=== PATIENT | female | born 1950 | race Caucasian/White ===

== ENCOUNTER → 2016-12-22 | Outpatient (CLI) | payer MEDICAID ==
--- NOTE | 2016-12-23 07:59 | US ---
EXAMINATION TYPE: US thyroid st tissue head/neck DATE OF EXAM: 12/22/2016 3:41 PM COMPARISON: US on PACS dated 18 June 2016 CLINICAL HISTORY: Goiter E04.2. GLAND SIZE: Right Lobe: 4.7 x2.3 x 2.0cm Overall Parenchyma: heterogenous Left Lobe: 4.8 x 2.1 x 2.1cm Overall Parenchyma: heterogeneous Isthmus Thickness: 0.4 cm NODULES RIGHT: # of nodules measured on right: 1. 0.6 X 0.7 x 0.3 cm hypoechoic mixed nodule at the mid pole with well-defined margins. This nodu le is wider than tall and shows no intranodular vascularity. Stable compared to prior 2. 1.2 X 1.1 x 0.8 cm hypoechoic mixed nodule at the lower pole with well-defined margins. This nod ule is wider than tall and shows no intranodular vascularity. Prior size: 1.4 x 0.9 x 0.9 cm, slightly diminished in size 3. 0.5 X 0.5 x 0.4 cm hypoechoic cystic nodule at the mid medial pole with well-defined margins. Th is nodule is wider than tall and shows no intranodular vascularity. stable. LEFT: # of nodules measured on left: 3 1. 1.8 X 1.5 x 1.1 cm hypoechoic mixed nodule at the lower pole with irregular margins. This nodul e is taller than wide and shows intranodular vascularity. Stable in appearance. The lesion was measured differently on prior exam. 2. 0.6 X 1.1 x 0.5 cm hypoechoic mixed nodule at the mid pole with well-defined margins. This nodul e is wider than tall and shows no intranodular vascularity. Stable in size, measured differently on prior exam 3. 0.4 X 0.6 x 0.3 cm hypoechoic mixed nodule at the mid upper medial pole with well-defined margins . This nodule is wider than tall and shows no intranodular vascularity. Prior size: 0.6 x 0.5 x 0.4 cm ISTHMUS: # of nodules measured in the isthmus: 0 TECHNOLOGIST IMPRESSION: Bilateral neck scanned, no abnormal lymphadenopathy noted. IMPRESSION: Exam is stable compared to prior
== END ==
LOC: RADUSWWP 14:49
PROVIDERS: ATTEND Family Medicine
DX: E04.2 Nontoxic multinodular goiter (principal)
CPT/HCPCS: 76536

== ENCOUNTER → 2017-06-17 | Outpatient (CLI) | payer MEDICAID ==
--- NOTE | 2017-06-25 14:01 | US ---
EXAMINATION TYPE: US thyroid st tissue head/neck DATE OF EXAM: 06/17/2017 COMPARISON: US CLINICAL HISTORY: E04.1 thyroid Nodule. Follow up US and patient not on thyroid medication GLAND SIZE: Right Lobe: 4.8 x 2.2 x 2.4 cm Overall Parenchyma: heterogenous Left Lobe: 5.5 x 2.2 x 2.4 cm Overall Parenchyma: heterogeneous Isthmus Thickness: 0.4 cm NODULES RIGHT: # of nodules measured on right: 3 largest of multiple 1. 1.9 X 1.3 x 1.1 cm hypoechoic mixed nodule at the lower pole with well-defined margins. This nod ule is wider than tall and shows no intranodular vascularity. Prior size: essentially stable(formerly labeled #2) 2. 0.8 X 0.6 x 0.5 cm hypoechoic mixed nodule at the mid pole with well-defined margins. This nodul e is wider than tall and shows no intranodular vascularity. Prior size: 0.6 x 0.7 x 0.3 cm (formerly labeled #1) 3. 0.5 X 0.5 x 0.4 cm hypoechoic cystic nodule at the mid medial pole with well-defined margins. Th is nodule is wider than tall and shows no intranodular vascularity. Prior size: 0.5 x 0.5 x 0.4 cm LEFT: # of nodules measured on left: 3 largest of multiple 1. 1.5 X 1.5 x 1.2 cm hypoechoic mixed nodule at the lower pole with irregular margins. This nodul e is wider than tall and shows intranodular vascularity. Prior size: 1.8 x 1.5 x 1.1 cm 2. 0.6 X 0.9 x 0.5 cm hypoechoic mixed nodule at the mid pole with well-defined margins. This nodule is wider than tall and shows intranodular vascularity. Prior size: 0.6 x 1.1 x 0.5 cm 3. 0.5 X 0.5 x 0.4 cm hypoechoic mixed nodule at the mid upper pole with well-defined margins. This nodule is wider than tall and shows no intranodular vascularity. Prior size: 0.4 x 0.6 x 0.3 cm ISTHMUS: # of nodules measured in the isthmus: 0 Bilateral neck scanned, no evidence of lymphadenopathy. IMPRESSION: Multiple thyroid nodules as described. Exam is felt to be stable.
== END | disposition home or self-care (01) ==
LOC: RADUSWWP 08:49
PROVIDERS: ATTEND Family Medicine
DX: E04.2 Nontoxic multinodular goiter (principal)
CPT/HCPCS: 76536

== ENCOUNTER 2017-06-25 08:58 | Day surgery (SDC) | payer MEDICAID ==
[2017-06-24 10:59] VITALS: BMI 22.4
[~2017-06-25 08:58] MED LIST: LACTATED RINGERS 1,000 ML IV SCH; LIDOCAINE 1% 20 ML VIAL (10MG/ML) FOR IV START INTRADERMA PRN
[2017-06-25 09:44] VITALS: RESP 16; TEMP 97.7
[2017-06-25] MEDS ORDERED: PROPOFOL 10 MG/ML 20 ML VIAL IV ONE (10:18)
[2017-06-25] MEDS ORDERED: LIDOCAINE 1% INJ 10MG/ML (20 ML MDV) ONE (10:18)
--- NOTE | 2017-06-25 10:43 | P.PCN ---
Date of Procedure: 06/25/17 Procedure(s) Performed: BRIEF HISTORY: Patient is a [id number] pleasant white female, scheduled for an elective colonoscopy as a part of screening for colorectal neoplasia. PROCEDURE PERFORMED: Colonoscopy and biopsy. PREOPERATIVE DIAGNOSIS: Screening for colon cancer. IV sedation per Anesthesia. PROCEDURE: After informed consent was obtained, the patient, was brought into the endoscopy unit. IV sedation was administered by Anesthesia under continuous monitoring. Digital rectal examination was normal. Initially the Olympus CF- 160 flexible video colonoscope was then inserted in the rectum, gradually advanced into the cecum without any difficulty. Careful examination was performed as the scope was gradually being withdrawn. Ileocecal valve and the appendiceal orifice were visualized and appeared normal. Prep was excellent. Mucosa of the cecum, ascending colon, transverse colon, descending colon, sigmoid colon, and rectum appeared normal. In the proximal rectum there was a 5 mm polyp that was removed by biopsy. Retroflexion was performed in the rectum and no lesions were seen. The patient tolerated the procedure well. IMPRESSION: 5 mm proximal rectal polyp status post biopsy Rest of the colon appeared normal RECOMMENDATIONS: Findings of this examination were discussed with the patient as her family. She was advised to follow with the biopsy results. If the biopsy shows a tubular adenoma she can have a repeat colonoscopy in 5 years.
[2017-06-25 11:13] VITALS: BP 113/83; PULSE 62
== END 2017-06-25 11:31 | disposition home or self-care (01) ==
LOC: ORWHC2ENDO 08:58
PROVIDERS: ATTEND Internal Medicine Gastroenterology
DX: Z12.11 Encounter for screening for malignant neoplasm of colon (principal); K62.1 Rectal polyp; Z79.899 Other long term (current) drug therapy; Z88.6 Allergy status to analgesic agent; Z88.5 Allergy status to narcotic agent; Z88.2 Allergy status to sulfonamides
CPT/HCPCS: 88305; 45380; J2001; J2704

== ENCOUNTER → 2017-06-28 | Outpatient (CLI) | payer MEDICAID ==
[2017-06-28 09:39] LABS: CH 29.2; CHCM 32.6; HCT 42.5 % (34.0-46.0); HDW 2.28; MCH 29.7 pg (25.0-35.0); MCHC 33.1 g/dL (31.0-37.0); MCV 89.8 fL (80.0-100.0); Mean Platelet Volume 6.7; RBC 4.73 m/uL (3.80-5.40); WBC 6.3 k/uL (3.8-10.6)
[2017-06-28 09:57] LABS: ALT 27 U/L (9-52); AST 21 U/L (14-36); Alkaline Phosphatase 85 U/L (38-126); Anion Gap 9 mmol/L; Appearance,Urine Clear (Clear); Bilirubin,Urine Negative (Negative); Blood Urea Nitrogen 15 mg/dL (7-17); Calcium 9.8 mg/dL (8.4-10.2); Carbon Dioxide 26 mmol/L (22-30); Chloride 107 mmol/L (98-107); Cholesterol 241 mg/dL (<200); Glucose 99 mg/dL (74-99); Glucose,Urine (UA) Negative (Negative); Ketones,Urine Negative (Negative); Leukocyte Esterase,Urine Negative (Negative); Nitrite,Urine Negative (Negative); Non-African American GFR(MDRD) >60 (>60 ml/min/1.73 sqM); Potassium 4.7 mmol/L (3.5-5.1); Protein,Urine Negative (Negative); Sodium 142 mmol/L (137-145); Specific Gravity,Urine 1.013 (1.001-1.035); Total Bilirubin 0.5 mg/dL (0.2-1.3); UA Billing (MACRO vs. MICRO) CHEM; Urobilinogen,Urine <2.0 mg/dL (<2.0)
[2017-06-28 10:33] LABS: Hepatitis C Virus IgG Ab Negative (Negative); Hepatitis C Virus IgG Index 0.02
[2017-06-28 10:45] LABS: HDL Cholesterol 123 mg/dL (40-60)
[2017-06-28 11:27] LABS: Hemoglobin A1C 5.5 % (4.2-6.1)
== END | disposition home or self-care (01) ==
LOC: LABWHC1 08:39
PROVIDERS: ATTEND Family Medicine
DX: Z00.00 Encounter for general adult medical examination without abnormal findings (principal); E04.2 Nontoxic multinodular goiter
CPT/HCPCS: 36415; 80053; 80061; 81003; 82306; 83036; 84439; 84443; 85027; 86803

== ENCOUNTER → 2017-11-03 | Outpatient (CLI) | payer MEDICAID ==
--- NOTE | 2017-11-03 16:24 | BD ---
EXAMINATION TYPE: MG DEXA axial skeleton. DATE OF EXAM: 11/03/2017 COMPARISON: 08/05/2015 CLINICAL HISTORY: 66-year-old female bone disorder, postmenopausal screening Height: 4 FT 11 1/2 IN Weight: 118 FRAX RISK QUESTIONS: Alcohol (3 or more units per day): NO Family History (Parent hip fracture): NO Glucocorticoids (More than 3mos): NO (Ex: prednisone, prednisolone, methylprednisolone, dexamethasone, and hydrocortisone). History of Fracture in Adulthood: NO Secondary Osteoporosis: 1. Type 1 Diabetes: NO 2. Hyperthyroidism: NO 3. Menopause before 45: NO 4. Malnutrition: NO 5. Chronic liver disease: NO Rheumatoid Arthritis: NO Current Tobacco Use: NO RISK FACTORS HISTORY OF: Surgery to Spine/Hip(right/left)/Wrist (right/left): LT WRIST REPLACED BASAL JOINT When: 7 YEARS AGO Family History of Osteoporosis: YES Active: YES Postmenopausal woman: AGE 56 MEDICATIONS: Additional Medications: NORVASC, CALCIUM, VIT D, LUNESTA, NATHANAEL Additional History: EXAM MEASUREMENTS: Bone mineral densitometry was performed using the [employer] System. Bone mineral density as measured about the Lumbar spine is: ----- L1-L4(G/cm2): 1.152 T Score Values are as follows: ----- L2: -0.5 ----- L3: -0.4 ----- L4: -0.2 ----- L1-L4: -0.2 Bone mineral density has: DECREASED -2.5 % since study of: 2014 Bone mineral density about the R hip (g/cm2): 0.871 Bone mineral density about the L hip (g/cm2): 0.871 T Score values are as follows: -----R Neck: -1.2 -----L Neck: -1.2 -----R Total: -0.9 -----L Total: -0.9 Bone mineral density has: DECREASED -4.4 % since study of: 2014 IMPRESSION: Osteopenia (T Score between -2.5 and -1 as noted by T score values There is slightly increased risk of fracture and the patient may be considered for treatment. Re-Screen 2-5 years. NOTE: T-SCORE=SD OF THE YOUNG ADULT MEAN.
--- NOTE | 2017-11-04 13:22 | MM ---
Reason for exam: screening (asymptomatic). Last mammogram was performed 1 year and 1 month ago. History: Patient is postmenopausal. Took hormonal contraceptives for 18 years beginning at age 20. Physical Findings: A clinical breast exam by your physician is recommended on an annual basis and results should be correlated with mammographic findings. MG 3D Screening Mammo W/Cad Bilateral CC and MLO view(s) were taken. Prior study comparison: September 24, 2016, bilateral MG 3d screening mammo w/cad. July 30, 2015, bilateral MG 3d screening mammo w/cad. The breast tissue is heterogeneously dense. This may lower the sensitivity of mammography. There is chronic nodularity in the right breast. No significant changes when compared with prior studies. ASSESSMENT: Negative, BI-RAD 1 RECOMMENDATION: Routine screening mammogram of both breasts in 1 year.
== END | disposition home or self-care (01) ==
LOC: RADMAMWWP 07:38
PROVIDERS: ATTEND Obstetrics & Gynecology
DX: Z12.31 Encounter for screening mammogram for malignant neoplasm of breast (principal); M85.80 Other specified disorders of bone density and structure, unspecified site
CPT/HCPCS: 77063; 77067; 77080

== ENCOUNTER → 2018-01-04 | Outpatient (CLI) | payer MEDICAID ==
[2018-01-04 08:19] LABS: ALT 20 U/L (9-52); AST 19 U/L (14-36); Albumin 4.4 g/dL (3.5-5.0); Alkaline Phosphatase 78 U/L (38-126); Anion Gap 12 mmol/L; Blood Urea Nitrogen 19 mg/dL (7-17); Calcium 9.7 mg/dL (8.4-10.2); Carbon Dioxide 27 mmol/L (22-30); Chloride 102 mmol/L (98-107); Glucose 95 mg/dL (74-99); Magnesium 2.1 mg/dL (1.6-2.3); Potassium 4.5 mmol/L (3.5-5.1); Sodium 141 mmol/L (137-145); Total Bilirubin 0.5 mg/dL (0.2-1.3); Total Protein 7.1 g/dL (6.3-8.2)
== END | disposition home or self-care (01) ==
LOC: LABWHC1 07:35
PROVIDERS: ATTEND Internal Medicine Interventional Cardiology
DX: I49.3 Ventricular premature depolarization (principal); R00.2 Palpitations
CPT/HCPCS: 36415; 80053; 83735

== ENCOUNTER → 2018-07-27 | Outpatient (CLI) | payer MEDICARE | END | disposition home or self-care (01) | LOC: LABWHC1 08:53 | PROVIDERS: ATTEND Internal Medicine Endocrinology, Diabetes & Metabolism | DX: Z00.01 Encounter for general adult medical examination with abnormal findings (principal); E04.2 Nontoxic multinodular goiter | CPT/HCPCS: 36415; 80061; 84443 ==

== ENCOUNTER → 2018-08-08 | Outpatient (CLI) | payer MEDICARE ==
--- NOTE | 2018-08-09 13:01 | US ---
EXAMINATION TYPE: US thyroid st tissue head/neck DATE OF EXAM: 08/08/2018 COMPARISON: NONE CLINICAL HISTORY: E04.2 GOITER. GLAND SIZE: Right Lobe: 4.9 x 2.7 x 2.0 cm Overall Parenchyma: heterogenous Left Lobe: 4.9 x 2.3 x 2.0 cm Overall Parenchyma: heterogeneous Isthmus Thickness: 0.3 cm NODULES RIGHT: # of nodules measured on right: 3 1. 1.6 X 1.3 x 1.1 cm hypoechoic mixed nodule at the lower pole with well-defined margins. This no dule is wider than tall and shows no intranodular vascularity. Prior size: 1.9 x 1.3 x 1.1 cm 2. 0.8 X 0.4 x 0.5 cm hypoechoic mixed nodule at the mid pole with well-defined margins. This nodul e is wider than tall and shows no intranodular vascularity. Prior size: 0.8 x 0.6 x 0.5 cm 3. 0.5 X 0.4 x 0.5 cm hypoechoic mixed nodule at the mid/medial pole with well-defined margins. Th is nodule is wider than tall and shows no intranodular vascularity. Prior size: 0.5 x 0.5 x 0.4 cm LEFT: # of nodules measured on left: 3 1. 1.5 X 0.9 x 1.5 cm hypoechoic mixed nodule at the lower pole with irregular margins. This nodul e is wider than tall and shows intranodular vascularity. Prior size: 1.5 x 1.5 x 1.2 cm 2. 0.7 X 0.6 x 0.9 cm hypoechoic mixed nodule at the mid pole with well-defined margins. This nodul e is wider than tall and shows no intranodular vascularity. Prior size: 0.6 x 0.9 x 0.5cm 3. 0.6 X 0.4 x 0.6 cm hypoechoic mixed nodule at the mid pole with well-defined margins. This nodul e is wider than tall and shows intranodular vascularity. Prior size: 0.5 x 0.5 x 0.4 cm ISTHMUS: # of nodules measured in the isthmus: 0 Bilateral neck scanned, no evidence of lymphadenopathy. IMPRESSION: Findings are similar to prior exam. No significant interval change is evident. Multinodular goiter.
== END | disposition home or self-care (01) ==
LOC: RADUSWWP 14:40
PROVIDERS: ATTEND Internal Medicine Endocrinology, Diabetes & Metabolism
DX: E04.2 Nontoxic multinodular goiter (principal)
CPT/HCPCS: 76536

== ENCOUNTER → 2018-12-19 | Outpatient (CLI) | payer MEDICARE ==
--- NOTE | 2018-12-20 09:21 | MM ---
Reason for exam: screening (asymptomatic). Last mammogram was performed 1 year and 2 months ago. History: Patient is postmenopausal. Took hormonal contraceptives for 18 years beginning at age 20. Physical Findings: A clinical breast exam by your physician is recommended on an annual basis and results should be correlated with mammographic findings. MG 3D Screening Mammo W/Cad Bilateral CC and MLO view(s) were taken. XCCL view(s) were taken of the left breast. Prior study comparison: November 03, 2017, bilateral MG 3d screening mammo w/cad. September 24, 2016, bilateral MG 3d screening mammo w/cad. The breast tissue is heterogeneously dense. This may lower the sensitivity of mammography. There is a stable right upper outer quadrant posterior depth mass back to 2015. No suspicious abnormality. No significant changes when compared with prior studies. ASSESSMENT: Benign, BI-RAD 2 RECOMMENDATION: Routine screening mammogram of both breasts in 1 year.
== END | disposition home or self-care (01) ==
LOC: RADMAMWWP 10:48
PROVIDERS: ATTEND Obstetrics & Gynecology
DX: Z12.31 Encounter for screening mammogram for malignant neoplasm of breast (principal)
CPT/HCPCS: 77063; 77067

== ENCOUNTER 2019-02-01 12:29 | Inpatient (IN) | payer MEDICARE ==
[2019-02-01] MEDS ORDERED: ADENOSINE 3 MG/ML 2 ML VIAL IVP STA (12:45)
[2019-02-01] MEDS ORDERED: SODIUM CHLORIDE 0.9% 1,000 ML IV STA (12:50)
--- NOTE | 2019-02-01 12:56 | ED ---
General Adult HPI - General Chief complaint: Arrhythmia/Palpitations Stated complaint: Palpitations Time Seen by Provider: 02/01/19 12:35 Source: patient, RN notes reviewed Mode of arrival: wheelchair Limitations: no limitations - History of Present Illness Initial comments: Patient is a pleasant 68-year-old female presenting to the emergency Department with palpitations. Onset of symptoms was a couple of hours ago while golfing. Symptoms have continued. Patient has tried bearing down multiple times without improvement of symptoms. Patient does have a history of similar symptoms previously associated PSVT. Patient has not had an episode in over a year now. No associated chest pain. No dyspnea. Patient does feel anxious. Patient states normally she is able to get herself out of this rhythm. - Related Data Home Medications Medication Instructions Recorded Confirmed ALPRAZolam [Xanax] 0.25 mg PO TID PRN 06/24/17 02/01/19 Cholecalciferol (Vitamin D3) 2,000 unit PO DAILY 06/24/17 02/01/19 [Vitamin D3] Eszopiclone [Lunesta] 3 mg PO HS 06/24/17 02/01/19 amLODIPine [Norvasc] 2.5 mg PO DAILY 06/24/17 02/01/19 Calcium Carb-Vit D 500Mg-200Un 1 tab PO DAILY 02/01/19 02/01/19 [Oscal 500+D] Allergies Allergy/AdvReac Type Severity Reaction Status Date / Time acetaminophen [From Vicodin] Allergy Nausea & Verified 02/01/19 12:55 Vomiting codeine Allergy Nausea & Verified 02/01/19 12:55 Vomiting hydrocodone [From Vicodin] Allergy Nausea & Verified 02/01/19 12:55 Vomiting Sulfa (Sulfonamide Allergy Nausea & Verified 02/01/19 12:55 Antibiotics) Vomiting Review of Systems ROS Statement: Those systems with pertinent positive or pertinent negative responses have been documented in the HPI. ROS Other: All systems not noted in ROS Statement are negative. Constitutional: Denies: fever Eyes: Denies: eye pain ENT: Denies: ear pain Respiratory: Denies: cough, dyspnea Cardiovascular: Reports: palpitations. Denies: chest pain Endocrine: Denies: fatigue Gastrointestinal: Denies: abdominal pain Genitourinary: Denies: dysuria Musculoskeletal: Denies: back pain Skin: Denies: rash Neurological: Denies: weakness Psychiatric: Reports: anxiety Past Medical History Past Medical History: Hypertension Additional Past Medical History / Comment(s): PSVT- has had for a very long time.States takes the [facility] for this. 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 Multiple nodules on her thyroid. Hx. of HTN. History of Any Multi-Drug Resistant Organisms: None Reported Past Surgical History: Orthopedic Surgery Additional Past Surgical History / Comment(s): Prior colonoscopy for a polyp. L Oophorectomy, L thumb surgery. Past Anesthesia/Blood Transfusion Reactions: No Reported Reaction Past Psychological History: No Psychological Hx Reported Smoking Status: Former smoker Past Alcohol Use History: Occasional Past Drug Use History: None Reported - Past Family History Mother Family Medical History: No Reported History Father Family Medical History: Cancer Additional Family Medical History / Comment(s): Larnyx Brother(s) Family Medical History: Cancer Additional Family Medical History / Comment(s): Prostate General Exam Limitations: no limitations General appearance: alert, anxious Head exam: Present: atraumatic Eye exam: Present: normal appearance, PERRL ENT exam: Present: normal oropharynx Neck exam: Present: normal inspection Respiratory exam: Present: normal lung sounds bilaterally Cardiovascular Exam: Present: tachycardia Expanded Peripheral pulses: 2+: Radial (R), Radial (L), Dorsalis Pedis (R), Dorsalis Pedis (L) GI/Abdominal exam: Present: soft. Absent: tenderness Extremities exam: Present: normal inspection. Absent: pedal edema, calf tenderness Neurological exam: Present: alert Psychiatric exam: Present: normal affect, normal mood Skin exam: Present: normal color Course Vital Signs 02/01/19 02/01/19 02/01/19 12:30 12:50 13:00 Temperature 97.7 F Pulse Rate 189 H 97 91 Respiratory 22 18 18 Rate Blood Pressure 122/95 118/85 120/72 O2 Sat by Pulse 100 100 100 Oximetry - Reevaluation(s) Reevaluation #1: 02/01/19 12:55 Repeat EKG at 1248 shows sinus rhythm at 87. MS 156. QRS 66. QT 3:30. QTC 397. Normal axis. Normal QRS. Borderline lateral ST depression 02/01/19 13:14 EKG #3 showed normal sinus rhythm at 83. MS 156. QRS 80. QT 372. QTC 437. Normal axis. Normal QRS. No acute ST change. 02/01/19 14:18 playground monitor: Normal sinus rhythm with a rate of 85. Patient was placed on cardiac monitors secondary to arrhythmia and to watch for further arrhythmias. EKG Findings - EKG Comments: EKG Findings:: SVT with a rate of 177. QRS 62. QT 260. QTC 446. Normal axis. Normal QRS. Lateral ST depression. Medical Decision Making - Medical Decision Making Patient reevaluated and updated. Rhythm remains normal sinus. Patient and family updated on results and plan. Case was discussed in detail with Dr. Calderon, who will admit covering for Dr. Guerrero, who admits for Dr. Gayle. Case was also discussed with practitioner Jojo capps, who will consult with cardiology. - Lab Data Result diagrams: 02/01/19 12:46 02/01/19 12:46 Lab Results 02/01/19 02/01/19 02/01/19 Range/Units 12:46 12:46 12:46 WBC 15.9 H (3.8-10.6) k/uL RBC 5.42 H (3.80-5.40) m/uL Hgb 14.9 (11.4-16.0) gm/dL Hct 45.9 (34.0-46.0) % MCV 84.7 (80.0-100.0) fL MCH 27.5 (25.0-35.0) pg MCHC 32.5 (31.0-37.0) g/dL RDW 12.7 (11.5-15.5) % Plt Count 386 (150-450) k/uL Neutrophils % 79 % Lymphocytes % 13 % Monocytes % 4 % Eosinophils % 1 % Basophils % 1 % Neutrophils # 12.6 H (1.3-7.7) k/uL Lymphocytes # 2.1 (1.0-4.8) k/uL Monocytes # 0.7 (0-1.0) k/uL Eosinophils # 0.1 (0-0.7) k/uL Basophils # 0.1 (0-0.2) k/uL PT (9.0-12.0) sec INR (<1.2) APTT (22.0-30.0) sec Sodium 139 (137-145) mmol/L Potassium 4.5 (3.5-5.1) mmol/L Chloride 105 (98-107) mmol/L Carbon Dioxide 21 L (22-30) mmol/L Anion Gap 13 mmol/L BUN 22 H (7-17) mg/dL Creatinine 1.05 H (0.52-1.04) mg/dL Est GFR (CKD-EPI)AfAm 64 (>60 ml/min/1.73 sqM) Est GFR (CKD-EPI)NonAf 55 (>60 ml/min/1.73 sqM) Glucose 87 (74-99) mg/dL Calcium 10.5 H (8.4-10.2) mg/dL Magnesium 1.9 (1.6-2.3) mg/dL Total Bilirubin 0.7 (0.2-1.3) mg/dL AST 22 (14-36) U/L ALT 22 (9-52) U/L Alkaline Phosphatase 93 (38-126) U/L Creatine Kinase 84 (30-135) U/L CK-MB (CK-2) 1.8 (0.0-2.4) ng/mL Troponin I 0.184 H* (0.000-0.034) ng/mL Total Protein 7.5 (6.3-8.2) g/dL Albumin 4.8 (3.5-5.0) g/dL TSH 1.470 (0.465-4.680) mIU/L Free T4 1.43 (0.78-2.19) ng/dL Free T3 pg/mL 4.9 (2.8-5.3) pg/ml 02/01/19 Range/Units 12:46 WBC (3.8-10.6) k/uL RBC (3.80-5.40) m/uL Hgb (11.4-16.0) gm/dL Hct (34.0-46.0) % MCV (80.0-100.0) fL MCH (25.0-35.0) pg MCHC (31.0-37.0) g/dL RDW (11.5-15.5) % Plt Count (150-450) k/uL Neutrophils % % Lymphocytes % % Monocytes % % Eosinophils % % Basophils % % Neutrophils # (1.3-7.7) k/uL Lymphocytes # (1.0-4.8) k/uL Monocytes # (0-1.0) k/uL Eosinophils # (0-0.7) k/uL Basophils # (0-0.2) k/uL PT 9.9 (9.0-12.0) sec INR 0.9 (<1.2) APTT 22.3 (22.0-30.0) sec Sodium (137-145) mmol/L Potassium (3.5-5.1) mmol/L Chloride (98-107) mmol/L Carbon Dioxide (22-30) mmol/L Anion Gap mmol/L BUN (7-17) mg/dL Creatinine (0.52-1.04) mg/dL Est GFR (CKD-EPI)AfAm (>60 ml/min/1.73 sqM) Est GFR (CKD-EPI)NonAf (>60 ml/min/1.73 sqM) Glucose (74-99) mg/dL Calcium (8.4-10.2) mg/dL Magnesium (1.6-2.3) mg/dL Total Bilirubin (0.2-1.3) mg/dL AST (14-36) U/L ALT (9-52) U/L Alkaline Phosphatase (38-126) U/L Creatine Kinase (30-135) U/L CK-MB (CK-2) (0.0-2.4) ng/mL Troponin I (0.000-0.034) ng/mL Total Protein (6.3-8.2) g/dL Albumin (3.5-5.0) g/dL TSH (0.465-4.680) mIU/L Free T4 (0.78-2.19) ng/dL Free T3 pg/mL (2.8-5.3) pg/ml Critical Care Time Critical Care Time: Yes Total Critical Care Time: 32 Disposition Clinical Impression: Supraventricular tachycardia Disposition: ADMITTED IP TO THIS HOSP Is patient prescribed a controlled substance at d/c from ED?: No Referrals: Alen Gayle DO [Primary Care Provider] - 1-2 days Decision Time: 14:19
[2019-02-01 13:08] LABS: Basophils # (A) 0.1 k/uL (0-0.2); Basophils % (A) 1 %; Eosinophils # (A) 0.1 k/uL (0-0.7); Eosinophils % (A) 1 %; HCT 45.9 % (34.0-46.0); HGB 14.9 gm/dL (11.4-16.0); Lymphocytes # (A) 2.1 k/uL (1.0-4.8); Lymphocytes % (A) 13 %; MCH 27.5 pg (25.0-35.0); MCHC 32.5 g/dL (31.0-37.0); MCV 84.7 fL (80.0-100.0); Mean Platelet Volume 7.8; Monocytes # (A) 0.7 k/uL (0-1.0); Monocytes % (A) 4 %; Neutrophils # (A) 12.6 k/uL (1.3-7.7); Neutrophils % (A) 79 %; Platelet Count 386 k/uL (150-450); RBC 5.42 m/uL (3.80-5.40); RDW 12.7 % (11.5-15.5); WBC 15.9 k/uL (3.8-10.6)
--- NOTE | 2019-02-01 13:25 | XR ---
EXAMINATION TYPE: XR chest 2V DATE OF EXAM: 02/01/2019 COMPARISON: NONE TECHNIQUE: PA and lateral views submitted. HISTORY: Dysrhythmia FINDINGS: The lungs are clear and there is no pneumothorax, pleural effusion, or focal pneumonia. Atheroscler otic change aorta. Hyperinflation suggests COPD. IMPRESSION: 1. No acute process.
[2019-02-01 13:26] LABS: Albumin 4.8 g/dL (3.5-5.0); Calcium 10.5 mg/dL (8.4-10.2); Magnesium 1.9 mg/dL (1.6-2.3); Potassium 4.5 mmol/L (3.5-5.1); Total Bilirubin 0.7 mg/dL (0.2-1.3); Total Protein 7.5 g/dL (6.3-8.2)
[2019-02-01 13:28] LABS: INR 0.9 (<1.2); Partial Thromboplastin Time 22.3 sec (22.0-30.0); Prothrombin Time 9.9 sec (9.0-12.0)
[2019-02-01 13:42] LABS: T4, Free (Free Thyroxine) 1.43 ng/dL (0.78-2.19)
[2019-02-01 13:43] LABS: Creatine Kinase MB 1.8 ng/mL (0.0-2.4)
[2019-02-01 13:45] LABS: Troponin I 0.184 ng/mL (0.000-0.034)
[2019-02-01] MEDS ORDERED: HEPARIN SODIUM,PORCINE 5,000 UNIT/ML 1 ML VIAL IV ONE (13:52)
[2019-02-01] MEDS ORDERED: HEPARIN SODIUM,PORCINE 5,000 UNIT/ML 1 ML VIAL IV PRN (13:52)
[2019-02-01] MEDS ORDERED: ASPIRIN 81 MG PO STA (13:52)
[2019-02-01] MEDS ORDERED: HEPARIN SOD,PORK IN 0.45% NACL 25,000 UNIT in 0.45% NACL 1 250ML.BAG IV SCH (14:00)
[2019-02-01] MEDS ORDERED: NITROGLYCERIN SL TABS 0.4 MG TAB SUBLINGUAL PRN (14:19)
[2019-02-01] MEDS ORDERED: ALPRAZolam 0.25 MG TAB PO PRN (14:20)
--- NOTE | 2019-02-01 15:06 | P.CRDCN ---
History of Present Illness Consult date: 02/01/19 Requesting physician: Juanis Calderon Reason for Consult (text): SVT Chief complaint: Palpitations History of present illness: This is a pleasant 68 stroke female who follows regularly with Dr. Olvera in the office. Patient has a known history of hypertension, PSVT, and states that this is been several years since she's had an episode of supraventricular tachycardia. According to the patient, overall she's been feeling well, she was on the golf course this morning and noticed her heart racing fast, because of the pace on the course, she did not feel comfortable lying down on the ground and taking deep breaths like she normally does when she has SVT. Therefore the symptoms of heart racing persisted for some time, when she was finally able to lie down and take a deep breath and bear down he remained in a rapid rhythm. She does state that she was dizzy and lightheaded and in spite of that drove herself home. She did lie on the ground at home called her who ultimately brought her to the emergency room for further evaluation and treatment. Her EKG on arrival here showed a supraventricular tachycardia, patient was given 6 mg of adenosine and converted to normal sinus rhythm. Her subsequent EKG showed normal sinus rhythm with no acute changes. Blood pressure at present 134/80 with a heart rate in the 80s, 99% on room air. White blood cell count 15.9, hemoglobin 14.9, platelet count 386. Sodium 139, potassium 4.5, BUN 22 and creatinine 1.0. A greasy level I.9. Troponin 0.184. TSH level I.4. At the time of my examination in the emergency room, patient states she feels well, a little tired, but otherwise no complaints. Past Medical History Past Medical History: Hypertension Additional Past Medical History / Comment(s): PSVT- has had for a very long time.States takes the [facility] for this. 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 Multiple nodules on her thyroid. Hx. of HTN. History of Any Multi-Drug Resistant Organisms: None Reported Past Surgical History: Orthopedic Surgery Additional Past Surgical History / Comment(s): Prior colonoscopy for a polyp. L Oophorectomy, L thumb surgery. Past Anesthesia/Blood Transfusion Reactions: No Reported Reaction Past Psychological History: No Psychological Hx Reported Smoking Status: Former smoker Past Alcohol Use History: Occasional Past Drug Use History: None Reported - Past Family History Mother Family Medical History: No Reported History Father Family Medical History: Cancer Additional Family Medical History / Comment(s): Larnyx Brother(s) Family Medical History: Cancer Additional Family Medical History / Comment(s): Prostate Medications and Allergies Home Medications Medication Instructions Recorded Confirmed Type ALPRAZolam [Xanax] 0.25 mg PO TID PRN 06/24/17 02/01/19 History Cholecalciferol (Vitamin D3) 2,000 unit PO DAILY 06/24/17 02/01/19 History [Vitamin D3] Eszopiclone [Lunesta] 3 mg PO HS 06/24/17 02/01/19 History amLODIPine [Norvasc] 2.5 mg PO DAILY 06/24/17 02/01/19 History Calcium Carb-Vit D 500Mg-200Un 1 tab PO DAILY 02/01/19 02/01/19 History [Oscal 500+D] Allergies Allergy/AdvReac Type Severity Reaction Status Date / Time acetaminophen [From Vicodin] Allergy Nausea & Verified 02/01/19 12:55 Vomiting codeine Allergy Nausea & Verified 02/01/19 12:55 Vomiting hydrocodone [From Vicodin] Allergy Nausea & Verified 02/01/19 12:55 Vomiting Sulfa (Sulfonamide Allergy Nausea & Verified 02/01/19 12:55 Antibiotics) Vomiting Physical Exam Vitals: Vital Signs Temp Pulse Resp BP Pulse Ox 02/01/19 14:30 81 18 134/89 99 02/01/19 13:00 91 18 120/72 100 02/01/19 12:50 97 18 118/85 100 02/01/19 12:30 97.7 F 189 H 22 122/95 100 Intake and Output 02/01/19 02/01/19 02/01/19 06:59 14:59 22:59 Other: Weight 52.163 kg PHYSICAL EXAMINATION: GENERAL: 68 stroke female in no acute distress at the time of my examination HEENT: Head is atraumatic, normocephalic. Pupils equal, round. Sclera anicteric. Conjunctiva are clear. Mucous membranes of the mouth are moist. Neck is supple. There is no elevated jugular venous pressure. No carotid bruit is heard. HEART EXAMINATION: Heart S1, S2 normal. No murmur or gallop heard. CHEST EXAMINATION: Lungs are clear to auscultation and precussion. No chest wall tenderness is noted on palpation or with deep breathing. ABDOMEN: Soft, nontender. Bowel sounds are heard. No organomegaly noted. EXTREMITIES: 2+ peripheral pulses with no evidence of peripheral edema and no calf tenderness noted. NEUROLOGIC patient is awake, alert and oriented 3 . . Results 02/01/19 12:46 02/01/19 12:46 Cardiac Enzymes 02/01/19 02/01/19 Range/Units 12:46 12:46 AST 22 (14-36) U/L CK-MB (CK-2) 1.8 (0.0-2.4) ng/mL Troponin I 0.184 H* (0.000-0.034) ng/mL Coagulation 02/01/19 Range/Units 12:46 PT 9.9 (9.0-12.0) sec APTT 22.3 (22.0-30.0) sec CBC 02/01/19 Range/Units 12:46 WBC 15.9 H (3.8-10.6) k/uL RBC 5.42 H (3.80-5.40) m/uL Hgb 14.9 (11.4-16.0) gm/dL Hct 45.9 (34.0-46.0) % Plt Count 386 (150-450) k/uL Comprehensive Metabolic Panel 02/01/19 Range/Units 12:46 Sodium 139 (137-145) mmol/L Potassium 4.5 (3.5-5.1) mmol/L Chloride 105 (98-107) mmol/L Carbon Dioxide 21 L (22-30) mmol/L BUN 22 H (7-17) mg/dL Creatinine 1.05 H (0.52-1.04) mg/dL Glucose 87 (74-99) mg/dL Calcium 10.5 H (8.4-10.2) mg/dL AST 22 (14-36) U/L ALT 22 (9-52) U/L Alkaline Phosphatase 93 (38-126) U/L Total Protein 7.5 (6.3-8.2) g/dL Albumin 4.8 (3.5-5.0) g/dL Current Medications Generic Name Dose Route Start Last Admin Trade Name Freq PRN Reason Stop Dose Admin Alprazolam 0.25 mg 02/01/19 14:20 Xanax PO TID PRN Anxiety Amlodipine Besylate 2.5 mg 02/02/19 09:00 Norvasc PO DAILY LANDRY Aspirin 325 mg 02/02/19 09:00 Aspirin PO DAILY LANDRY Heparin Sodium (Porcine) 0 unit 02/01/19 13:52 Heparin IV PER PROTOCOL PRN Low PTT Protocol Sodium Chloride 1,000 mls @ 100 mls/hr 02/01/19 12:50 02/01/19 13:19 Saline 0.9% IV 02/01/19 22:49 100 mls/hr .Q10H STA Administration Heparin Sodium/Sodium Chloride 250 mls @ 6.26 mls/hr 02/01/19 14:00 02/01/19 14:25 25,000 unit/ Sodium Chloride IV 12 units/kg/hr .Q24H LANDRY 6.26 mls/hr Administration Protocol 12 UNITS/KG/HR Nitroglycerin 0.4 mg 02/01/19 14:19 Nitrostat SUBLINGUAL Q5M PRN Chest Pain Sodium Chloride 10 ml 02/01/19 21:00 Saline Flush IV BID LANDRY Temazepam 15 mg 02/01/19 21:00 Restoril PO HS LANDRY Intake and Output 02/01/19 02/01/19 02/01/19 06:59 14:59 22:59 Other: Weight 52.163 kg Patient Weight 02/02/19 06:59 Weight 52.163 kg 02/01/19 12:46 02/01/19 12:46 EKG Interpretations (text) Initial EKG showed a supraventricular tachycardia, subsequent EKG showed normal sinus rhythm with no acute changes. Assessment and Plan Plan: Assessment and plan #1 supraventricular tachycardia, currently in normal sinus rhythm post adenosine #2 history of PSVT #3 hypertension #4 abnormality in troponin, likely secondary to SVT Plan We will obtain 2 subsequent troponin, obtain echocardiogram with Doppler study. Continue to observe the patient for another 24 hours. Further recommendations to follow. DNP note has been reviewed, I agree with a documented findings and plan of care. Patient was seen and examined.
[2019-02-01] MEDS: SODIUM CHLORIDE 0.9% 1,000 ML IV SCH (18:52)
--- NOTE | 2019-02-01 20:42 | HP ---
HISTORY AND PHYSICAL CHIEF COMPLAINT: Leg pain and palpitations. HISTORY OF PRESENT ILLNESS: This 68-year-old woman with a past medical history of multiple medical problems, including hypertension, DJD, history of supraventricular tachycardia, being followed by Dr. Gayle and Dr. Olvera in the outpatient setting, apparently was playing golf today. The patient had palpitations that lasted for a couple of hours. The patient usually does some maneuvers to stop it, which relieved the symptoms, and the patient came to [facility] and was admitted for further evaluation and treatment. The patient was given adenosine, with significant relief in the symptoms. The patient had normal sinus rhythm with possibly sinus arrhythmia. Her EKG also showed some ST-T changes in the lateral leads with tachycardia. The patient was admitted for further evaluation and treatment. Cardiology evaluation has been sought. The patient has not had a recent stress test. Lab-welsh, white count is elevated at 15.9. Troponin was found to be 0.184. There is no history of any fever, rigors or chills. No history of headache, loss of consciousness, seizures. PAST MEDICAL HISTORY: 1. History of hypertension. 2. DJD. 3. History of supraventricular tachycardia. 4. History of thyroid nodules. 5. History of DJD. MEDICATIONS PRIOR TO ADMISSION: Include: 1. Norvasc 2.5 daily. 2. Lunesta 3 mg p.o. at bedtime. 3. Vitamin D3 2000 daily. 4. Os-Oneil with vitamin D one p.o. daily. 5. Xanax 0.25 t.i.d. p.r.n. ALLERGIES: 1. VICODIN. 2. CODEINE. 3. ANTIBIOTICS. FAMILY HISTORY: No history of any heart disease or strokes in the family. SOCIAL HISTORY: No history of smoking. Occasional alcohol intake. REVIEW OF SYSTEMS: ENT: No diminished hearing. No diminished vision. CARDIOVASCULAR SYSTEM: As mentioned earlier. RESPIRATORY SYSTEM: No cough, hemoptysis. GI: No nausea, vomiting, diarrhea. : No dysuria or retention. NERVOUS SYSTEM: No numbness, weakness. ALLERGY/IMMUNOLOGY: No asthma, hayfever. MUSCULOSKELETAL: As mentioned earlier. HEMATOLOGY/ONCOLOGY: No history of anemia. ENDOCRINE: No history of diabetes, hypothyroidism. CONSTITUTIONAL: As mentioned earlier. DERMATOLOGY: Negative. RHEUMATOLOGY: Negative. PSYCHIATRY: As mentioned earlier. PHYSICAL EXAMINATION: Patient alert and oriented x3. Pulse 80, blood pressure 116/78, respiration 18, temperature normal, pulse ox 98% on 2 L. HEENT: Conjunctivae normal. Oral mucosa moist. NECK: No jugular venous distention. No carotid bruit. No lymph node enlargement. CARDIOVASCULAR SYSTEM: S1, S2 muffled. No S3. No S4. RESPIRATORY SYSTEM: Breath sounds diminished at the bases. No rhonchi. No crackles. ABDOMEN: Soft, non-tender. No mass palpable. LEGS: No edema. No swelling. NERVOUS SYSTEM: Higher functions as mentioned earlier. Moves all 4 limbs. No focal motor or sensory deficit. LYMPHATICS: No lymph node palpable in neck, axillae or groin. SKIN: No ulcer, rash, bleeding. JOINTS: No active deforming arthropathy. LABS: WBC 15.9, hemoglobin 14.9. Sodium 131, potassium 4.5, creatinine 1.05. Troponin 0.184. ASSESSMENT: 1. Atrial flutter with fast ventricular rate. 2. Troponin 0.184. Rule out acute gkn-TN-eufwoaf-elevation myocardial infarction. 3. Increased creatinine. Rule out mild acute renal failure, possibly prerenal secondary to dehydration. 4. Increased white count. 5. Hypertension. 6. History of degenerative joint disease. 7. History of supraventricular tachycardia. 8. Thyroid nodules. RECOMMENDATIONS AND DISCUSSION: In this 68-year-old woman who presented with multiple medical issues, at this time I recommend to continue current medications. IV heparin has been initiated. Will continue to hydrate the patient. We will follow the patient closely with Cardiology. The patient might require further testing to rule out coronary artery disease. Overall prognosis guarded because of multiple complex medical issues as detailed above. Further recommendations to follow. Discussed with the patient and family. A copy of this dictation is being forwarded to Dr. Gayle, who is the primary physician. MMODL / IJN: [id number] /
[2019-02-01] MEDS ORDERED: TEMAZEPAM 15 MG CAP PO SCH (21:00)
[2019-02-01 21:40] LABS: Appearance,Urine Clear (Clear); Bilirubin,Urine Negative (Negative); Blood,Urine Negative (Negative); Color,Urine Light Yellow; Glucose,Urine (UA) Negative (Negative); Ketones,Urine Negative (Negative); Leukocyte Esterase,Urine Negative (Negative); Nitrite,Urine Negative (Negative); PH, Urine 6.5 (5.0-8.0); Protein,Urine Negative (Negative); Specific Gravity,Urine 1.007 (1.001-1.035); Urobilinogen,Urine <2.0 mg/dL (<2.0)
[2019-02-02 07:05] LABS: Basophils # (A) 0.1 k/uL (0-0.2); Basophils % (A) 1 %; Eosinophils # (A) 0.2 k/uL (0-0.7); Eosinophils % (A) 4 %; HGB 13.1 gm/dL (11.4-16.0); Lymphocytes # (A) 2.4 k/uL (1.0-4.8); Lymphocytes % (A) 39 %; MCH 27.6 pg (25.0-35.0); MCV 86.3 fL (80.0-100.0); Mean Platelet Volume 7.3; Monocytes # (A) 0.4 k/uL (0-1.0); Monocytes % (A) 6 %; Neutrophils # (A) 2.9 k/uL (1.3-7.7); Neutrophils % (A) 47 %; Platelet Count 274 k/uL (150-450); RBC 4.75 m/uL (3.80-5.40); RDW 13.6 % (11.5-15.5); WBC 6.2 k/uL (3.8-10.6)
[2019-02-02 08:03] LABS: Anion Gap 7 mmol/L; Blood Urea Nitrogen 14 mg/dL (7-17); Calcium 8.6 mg/dL (8.4-10.2); Carbon Dioxide 24 mmol/L (22-30); Chloride 111 mmol/L (98-107); Cholesterol 224 mg/dL (<200); Glucose 101 mg/dL (74-99); HDL Cholesterol 103 mg/dL (40-60); LDL Cholesterol,Calculated 106 mg/dL (0-99); Potassium 4.2 mmol/L (3.5-5.1); Sodium 142 mmol/L (137-145); Triglycerides 74 mg/dL (<150)
[2019-02-02] MEDS ORDERED: CHOLECALCIFEROL 1,000 UNIT TAB PO SCH (09:00)
[2019-02-02] MEDS ORDERED: amLODIPine 2.5 MG TAB PO SCH (09:00)
[2019-02-02] MEDS ORDERED: ASPIRIN 325 MG TAB PO SCH (09:00)
[2019-02-02] MEDS ORDERED: CALCIUM CARB-VIT D 500MG-200UN 1 EACH TAB PO SCH (09:00)
[2019-02-02] MEDS: SODIUM CHLORIDE 0.9% 1,000 ML IV SCH (09:34)
--- NOTE | 2019-02-02 10:08 | ECHOF ---
Referral Reason:svt, elevated trop MEASUREMENTS -------- HEIGHT: 165.1 cm WEIGHT: 52.2 kg BP: 120/72 IVSd: 0.9 cm (0.6 - 1.1) LVIDd: 3.7 cm (3.9 - 5.3) LVPWd: 0.9 cm (0.6 - 1.1) IVSs: 1.4 cm LVIDs: 2.4 cm LVPWs: 1.4 cm LA Diam: 2.9 cm (2.7 - 3.8) RVIDd: 3.1 cm (< 3.3) Ao Diam: 3.3 cm (2.0 - 3.7) AV Cusp: 2.1 cm (1.5 - 2.6) EPSS: 0.5 cm MV E Jona: 0.75 m/s MV DecT: 191 ms MV A Jona: 0.66 m/s MV E/A Ratio: 1.14 RAP: 5.00 mmHg RVSP: 20.60 mmHg MV EF SLOPE: 67.14 mm/s (70 - 150) MV EXCURSION: 14.88 mm (> 18.000) FINDINGS -------- Sinus rhythm. This was a technically excellent study. The left ventricular size is normal. Left ventricular wall thickness is normal. Overall left vent ricular systolic function is normal with, an EF between 60 - 65 %. The right ventricle is normal in size. The left atrial size is normal. The right atrium is normal in size. The aortic valve is trileaflet and appears structurally normal. There is trace to mild mitral regurgitation. Mild tricuspid regurgitation present. Right ventricular systolic pressure is normal at < 35 mmHg. Trace/mild (physiologic) pulmonic regurgitation. The aortic root size is normal. Normal inferior vena cava with normal inspiratory collapse consistent with estimated right atrial pre ssure of 5 mmHg. There is no pericardial effusion. CONCLUSIONS -------- 1. Sinus rhythm. 2. This was a technically excellent study. 3. The left ventricular size is normal. 4. Left ventricular wall thickness is normal. 5. Overall left ventricular systolic function is normal with, an EF between 60 - 65 %. 6. The right ventricle is normal in size. 7. The left atrial size is normal. 8. The right atrium is normal in size. 9. The aortic valve is trileaflet and appears structurally normal. 10. There is trace to mild mitral regurgitation. 11. Mild tricuspid regurgitation present. 12. Right ventricular systolic pressure is normal at < 35 mmHg. 13. Trace/mild (physiologic) pulmonic regurgitation. 14. The aortic root size is normal. 15. Normal inferior vena cava with normal inspiratory collapse consistent with estimated right atrial pressure of 5 mmHg. 16. There is no pericardial effusion. BODY ENGINEER: Norma Marr RDCS
[2019-02-02 10:42] VITALS: RESP 18; TEMP 98.6
[2019-02-02] MEDS ORDERED: VERAPAMIL SR 120 MG TABLET.ER PO SCH (11:15)
[2019-02-02 12:19] VITALS: BP 142/88; PULSE 71
--- NOTE | 2019-02-02 14:51 | P.PN ---
Subjective Progress Note Date: 02/02/19 This is a pleasant 68 stroke female who follows regularly with Dr. Olvera in the office. Patient has a known history of hypertension, PSVT, and states that this is been several years since she's had an episode of supraventricular tachycardia. According to the patient, overall she's been feeling well, she was on the golf course this morning and noticed her heart racing fast, because of the pace on the course, she did not feel comfortable lying down on the ground and taking deep breaths like she normally does when she has SVT. Therefore the symptoms of heart racing persisted for some time, when she was finally able to lie down and take a deep breath and bear down he remained in a rapid rhythm. She does state that she was dizzy and lightheaded and in spite of that drove herself home. She did lie on the ground at home called her who ultimately brought her to the emergency room for further evaluation and treatment. Her EKG on arrival here showed a supraventricular tachycardia, patient was given 6 mg of adenosine and converted to normal sinus rhythm. Her subsequent EKG showed normal sinus rhythm with no acute changes. Blood pressure at present 134/80 with a heart rate in the 80s, 99% on room air. White blood cell count 15.9, hemoglobin 14.9, platelet count 386. Sodium 139, potassium 4.5, BUN 22 and creatinine 1.0. A greasy level I.9. Troponin 0.184. TSH level I.4. At the time of my examination in the emergency room, patient states she feels well, a little tired, but otherwise no complaints. 02/02/2019 Patient was seen and examined this morning, feels well overall. No further episodes of SVT noted. Echo revealed normal left ventricular systolic function. Patient's abnormality in troponin was likely secondary to SVT. From cardiology's perspective, we'll discontinue Norvasc and start the patient on verapamil, we will set up a follow-up appointment for the patient to see Dr. Olvera in the upcoming week. Objective - Vital Signs Vital signs: Vital Signs Temp 98.6 F 02/02/19 08:00 Pulse 71 02/02/19 12:15 Resp 18 02/02/19 08:00 BP 142/88 02/02/19 12:15 Pulse Ox 97 02/02/19 08:00 Intake & Output 02/01/19 02/02/19 02/02/19 18:59 06:59 18:59 Intake Total 39.96 322.159 Balance 39.96 322.159 Weight 52.163 kg 53 kg Intake: Intake, IV Titration 39.96 82.159 Amount Heparin Sod,Pork in 0.45% 39.96 82.159 NaCl 25,000 unit In 0.45 % NaCl 1 250ml.bag @ 12 UNITS/KG/HR 6.26 mls/hr IV .Q24H LANDRY Rx#: [id number] Oral 240 Other: # Voids 1 - Exam PHYSICAL EXAMINATION: GENERAL: 68 stroke female in no acute distress at the time of my examination HEENT: Head is atraumatic, normocephalic. Pupils equal, round. Sclera anic teric. Conjunctiva are clear. Mucous membranes of the mouth are moist. Neck is supple. There is no elevated jugular venous pressure. No carotid bruit is heard. HEART EXAMINATION: Heart S1, S2 normal. No murmur or gallop heard. CHEST EXAMINATION: Lungs are clear to auscultation and precussion. No chest wall tenderness is noted on palpation or with deep breathing. ABDOMEN: Soft, nontender. Bowel sounds are heard. No organomegaly noted. EXTREMITIES: 2+ peripheral pulses with no evidence of peripheral edema and no calf tenderness noted. NEUROLOGIC patient is awake, alert and oriented 3 . - Labs CBC & Chem 7: 02/02/19 06:36 02/02/19 06:36 Labs: Abnormal Lab Results - Last 24 Hours (Table) 02/01/19 02/01/19 02/02/19 Range/Units 19:36 19:36 00:58 APTT 45.1 H (22.0-30.0) sec Chloride (98-107) mmol/L Glucose (74-99) mg/dL Troponin I 0.635 H* 0.501 H* (0.000-0.034) ng/mL Cholesterol (<200) mg/dL LDL Cholesterol, Calc (0-99) mg/dL HDL Cholesterol (40-60) mg/dL 02/02/19 02/02/19 Range/Units 06:36 06:36 APTT 49.3 H (22.0-30.0) sec Chloride 111 H (98-107) mmol/L Glucose 101 H (74-99) mg/dL Troponin I (0.000-0.034) ng/mL Cholesterol 224 H (<200) mg/dL LDL Cholesterol, Calc 106 H (0-99) mg/dL HDL Cholesterol 103 H (40-60) mg/dL Assessment and Plan Plan: Assessment and plan #1 supraventricular tachycardia, currently in normal sinus rhythm post adenosine #2 history of PSVT #3 hypertension #4 abnormality in troponin, likely secondary to SVT Plan We will discontinue the Norvasc and start the patient on verapamil. Patient may be able to be discharged home from cardiology's perspective. Follow-up appointment with Dr. Olvera in the next upcoming week. Outpatient stress test. DNP note has been reviewed, I agree with a documented findings and plan of care. Patient was seen and examined.
--- NOTE | 2019-02-03 07:45 | DS ---
DISCHARGE SUMMARY FINAL DIAGNOSES: 1. Atrial flutter with fast ventricular rate. 2. Troponin 0.635, possibly secondary to persistent atrial fibrillation per Cardiology. 3. Increased creatinine with possible mild acute renal failure, prerenal, improved. 4. WBC, improved. 5. Hypertension. 6. Hyperlipidemia. 7. History of degenerative joint disease. 8. History of super tachycardia. 9. Thyroid nodules, history. DISCHARGE DISPOSITION: The patient will be discharged in a stable condition with guarded prognosis. Cardiology cleared the patient for discharge. HISTORY OF PRESENT ILLNESS: This is a 68-year-old woman with a past medical history of multiple medical problems being followed by Dr. Gayle in the outpatient setting admitted with persistent palpitations and the patient was found to have atrial flutter with fast ventricular rate. Patient was converted with an IV adenosine. Troponins were found to be elevated as mentioned earlier. Cardiology evaluated the patient and recommended outpatient followup and stress test. The elevated troponins were thought to be due to persistent tachycardia. The cholesterol was elevated to 224 and LDL was 106. The patient would like to follow up with Dr. Gayle regarding low dose of Lipitor. On exam, vitals are stable. CARDIOVASCULAR: S1, S2. ABDOMEN: Soft. NERVOUS SYSTEM: No focal deficits. Diet is cardiac diet. Activity limited until followup. Follow up with Dr. Gayle in 1-2 days. Follow up with Dr. Olvera in 1 week and further workup. MEDICATIONS: 1. Lunesta 3 mg p.o. q.h.s. 2. Norvasc 2.5 mg. 3. Os-Oniel with vitamin D 1 p.o. daily. 4. Vitamin D3 two thousand daily. 5. Xanax 0.5 t.i.d. p.r.n. 6. Ecotrin 81 mg p.o. daily. 7. Verapamil 120 mg p.o. daily. MMODL / IJN: [id number] /
== END 2019-02-02 12:18 | disposition home or self-care (01) | DRG 309 ==
LOC: EC 12:29 → 3SCARD 14:19
PROVIDERS: ADMIT Hospitalist; ATTEND Hospitalist
DX: I48.92 Unspecified atrial flutter (principal); N17.9 Acute kidney failure, unspecified; I47.1 Supraventricular tachycardia; M19.90 Unspecified osteoarthritis, unspecified site; Z79.899 Other long term (current) drug therapy; Z87.891 Personal history of nicotine dependence; Z90.721 Acquired absence of ovaries, unilateral; E04.2 Nontoxic multinodular goiter; E78.5 Hyperlipidemia, unspecified; I10 Essential (primary) hypertension; I48.1 Persistent atrial fibrillation; R74.8 Abnormal levels of other serum enzymes; Z88.6 Allergy status to analgesic agent; Z88.5 Allergy status to narcotic agent; Z80.42 Family history of malignant neoplasm of prostate
CPT/HCPCS: 36415; 71046; 80048; 80053; 80061; 81003; 82550; 82553; 83735; 84439; 84443; 84481; 84484; 85025; 85610; 85730; 93005; 93306; 96361; 96365; 96366; 96375; 96376; 99291

== ENCOUNTER → 2019-02-23 | Outpatient (CLI) | payer MEDICARE ==
[2019-02-23 11:17] LABS: HCT 42.6 % (34.0-46.0); HGB 13.6 gm/dL (11.4-16.0); MCH 27.6 pg (25.0-35.0); MCV 86.1 fL (80.0-100.0); Mean Platelet Volume 7.3; Platelet Count 260 k/uL (150-450); RBC 4.95 m/uL (3.80-5.40); RDW 12.8 % (11.5-15.5); WBC 6.4 k/uL (3.8-10.6)
[2019-02-23 18:45] LABS: ALT 16 U/L (8-44); AST 20 U/L (13-35); Calcium 9.2 mg/dL (8.7-10.3); Carbon Dioxide 22.9 mmol/L (21.6-31.8); Chloride 105 mmol/L (96-109); Cholesterol 240 mg/dL (0-200); Glucose 86 mg/dL (70-110); Potassium 4.8 mmol/L (3.5-5.5); Sodium 138 mmol/L (135-145); Triglycerides <50.0 mg/dL (0.0-149.0); VLDL Calculation 9.98 mg/dL (5.00-40.00)
== END | disposition home or self-care (01) ==
LOC: LABWHC1 10:03
PROVIDERS: ATTEND Family Medicine
DX: E78.5 Hyperlipidemia, unspecified (principal); N28.9 Disorder of kidney and ureter, unspecified
CPT/HCPCS: 36415; 80048; 80061; 84450; 84460; 85027

== ENCOUNTER → 2020-03-07 | Outpatient (CLI) | payer MEDICARE ==
[2020-03-07 14:07] LABS: Appearance,Urine Clear (Clear); Bilirubin,Urine Negative (Negative); Blood,Urine Trace (Negative); Color,Urine Yellow; Glucose,Urine (UA) Negative (Negative); Ketones,Urine Negative (Negative); Leukocyte Esterase,Urine Negative (Negative); Mucus,Urine Rare /hpf; Nitrite,Urine Negative (Negative); PH, Urine 6.5 (5.0-8.0); Protein,Urine Negative (Negative); RBC,Urine 1 /hpf (0-5); Specific Gravity,Urine 1.014 (1.001-1.035); Urobilinogen,Urine <2.0 mg/dL (<2.0)
[2020-03-07 14:24] LABS: Basophils # (A) 0.1 k/uL (0-0.2); Basophils % (A) 1 %; Eosinophils # (A) 0.2 k/uL (0-0.7); Eosinophils % (A) 2 %; HCT 42.2 % (34.0-46.0); HGB 14.5 gm/dL (11.4-16.0); Lymphocytes % (A) 30 %; MCH 30.3 pg (25.0-35.0); MCHC 34.3 g/dL (31.0-37.0); MCV 88.3 fL (80.0-100.0); Mean Platelet Volume 7.6; Monocytes # (A) 0.4 k/uL (0-1.0); Monocytes % (A) 5 %; Neutrophils # (A) 3.9 k/uL (1.3-7.7); Neutrophils % (A) 60 %; Platelet Count 244 k/uL (150-450); RBC 4.78 m/uL (3.80-5.40); RDW 12.1 % (11.5-15.5); WBC 6.5 k/uL (3.8-10.6)
[2020-03-08 00:37] LABS: T4, Free (Free Thyroxine) 1.2 ng/dL (0.80-1.80)
[2020-03-08 00:55] LABS: African American GFR (CKD) 103.9 (60.0-200.0); Albumin 4.7 g/dL (3.80-4.90); Albumin/Globulin Ratio 2.35 (1.60-3.17); BUN/Creat Ratio 24.29 Ratio (12.00-20.00); Calcium 9.9 mg/dL (8.7-10.3); Chol/HDL Ratio 2.07; Non-African American GFR(CKD) 89.7 (60.0-200.0); Potassium 4.5 mmol/L (3.5-5.5); Total Bilirubin 0.9 mg/dL (0.2-1.2); Total Protein 6.7 g/dL (6.2-8.2)
== END | disposition home or self-care (01) ==
LOC: LABWHC1 11:38
PROVIDERS: ATTEND Family Medicine
DX: I47.1 Supraventricular tachycardia (principal); E78.5 Hyperlipidemia, unspecified; M85.80 Other specified disorders of bone density and structure, unspecified site
CPT/HCPCS: 36415; 80053; 80061; 81001; 82306; 84439; 84443; 85025

== ENCOUNTER 2020-05-18 12:17 | Emergency (ER) | payer MEDICARE ==
[2020-05-18 12:25] VITALS: RESP 18; TEMP 98.7
[2020-05-18] MEDS ORDERED: diazePAM 5 MG TAB PO STA (13:04)
[2020-05-18] MEDS ORDERED: KETOROLAC 15 MG/ML 1 ML VIAL IM STA ×2 (13:04→13:43)
--- NOTE | 2020-05-18 13:35 | ED ---
Lower Extremity Injury HPI - General Chief Complaint: Extremity Injury, Lower Stated Complaint: Pulled Muscle Time Seen by Provider: 05/18/20 12:28 Source: patient, RN notes reviewed, old records reviewed Mode of arrival: wheelchair Limitations: no limitations - History of Present Illness Initial Comments: This is a 69-year-old female to the ER for evaluation of significant left thigh pain. Patient has significant muscle spasm and tenderness and medial aspect of her left thigh no injury noted except for persistent with her from playing golf. Patient difficulty walking leg severe pain and spasm MD Complaint: thigh injury (Left) -: days(s) Injury: Thigh: Left, Leg: Left Type of Injury: hyperextension Severity: moderate Severity scale (1-10): 4 Improves With: nothing Worsens With: nothing Other Symptoms: loss of consciousness Associated Symptoms: swelling, numbness - Related Data Home Medications Medication Instructions Recorded Confirmed ALPRAZolam [Xanax] 0.25 mg PO TID PRN 06/24/17 02/01/19 Cholecalciferol (Vitamin D3) 2,000 unit PO DAILY 06/24/17 02/01/19 [Vitamin D3] Eszopiclone [Lunesta] 3 mg PO HS 06/24/17 02/01/19 Calcium Carb-Vit D 500Mg-200Un 1 tab PO DAILY 02/01/19 02/01/19 [Oscal 500+D] Previous Rx's Medication Instructions Recorded Aspirin EC [Ecotrin Low Dose] 81 mg PO DAILY #30 tablet. 02/02/19 Verapamil Sr [Isoptin Sr] 120 mg PO DAILY #30 tablet.er 02/02/19 Allergies Allergy/AdvReac Type Severity Reaction Status Date / Time acetaminophen [From Vicodin] Allergy Nausea & Verified 05/18/20 12:25 Vomiting codeine Allergy Nausea & Verified 05/18/20 12:25 Vomiting hydrocodone [From Vicodin] Allergy Nausea & Verified 05/18/20 12:25 Vomiting Sulfa (Sulfonamide Allergy Nausea & Verified 05/18/20 12:25 Antibiotics) Vomiting Review of Systems ROS Statement: Those systems with pertinent positive or pertinent negative responses have been documented in the HPI. ROS Other: All systems not noted in ROS Statement are negative. Past Medical History Past Medical History: Hypertension, Osteoarthritis (OA), Supraventricular Tachycardia (SVT) Additional Past Medical History / Comment(s): PSVT, thyroid nodules, sinus issues, arthritis bilateral thumbs. History of Any Multi-Drug Resistant Organisms: None Reported Past Surgical History: Joint Replacement Additional Past Surgical History / Comment(s): Prior colonoscopy for a benign polyp, L oophorectomy, L thumb joint surgery. Past Anesthesia/Blood Transfusion Reactions: No Reported Reaction Past Psychological History: No Psychological Hx Reported Smoking Status: Never smoker Past Alcohol Use History: Occasional Past Drug Use History: None Reported - Past Family History Mother Family Medical History: No Reported History Additional Family Medical History / Comment(s): Mother lived to be 89yrs old. Father Family Medical History: Cancer Additional Family Medical History / Comment(s): Larnyx Brother(s) Family Medical History: Cancer Additional Family Medical History / Comment(s): Prostate General Exam Limitations: no limitations General appearance: alert, in no apparent distress Head exam: Present: atraumatic, normocephalic, normal inspection Eye exam: Present: normal appearance, PERRL, EOMI. Absent: scleral icterus, conjunctival injection, periorbital swelling ENT exam: Present: normal exam, mucous membranes moist Neck exam: Present: normal inspection. Absent: tenderness, meningismus, lymphadenopathy Respiratory exam: Present: normal lung sounds bilaterally. Absent: respiratory distress, wheezes, rales, rhonchi, stridor Cardiovascular Exam: Present: regular rate, normal rhythm, normal heart sounds. Absent: systolic murmur, diastolic murmur, rubs, gallop, clicks GI/Abdominal exam: Present: soft, normal bowel sounds. Absent: distended, tenderness, guarding, rebound, rigid Extremities exam: Present: normal inspection, full ROM, normal capillary refill. Absent: tenderness, pedal edema, joint swelling, calf tenderness Back exam: Present: normal inspection Neurological exam: Present: alert, oriented X3, CN II-XII intact Psychiatric exam: Present: normal affect, normal mood Skin exam: Present: warm, dry, intact, normal color. Absent: rash Course Vital Signs 05/18/20 05/18/20 12:21 13:48 Temperature 98.7 F Pulse Rate 75 71 Respiratory 18 18 Rate Blood Pressure 144/77 151/77 O2 Sat by Pulse 99 98 Oximetry - Reevaluation(s) Reevaluation #1: 05/18/20 13:44 medical record is reviewed Reevaluation #2: 05/18/20 14:22 Symptoms improved Reevaluation #3: 05/18/20 14:22 Patient informed of results okay for evaluation for outpatient evaluation and further test Medical Decision Making - Medical Decision Making 69 female DF for evaluation of left hip sprain. Patient will be given pain and symptom management. Follow up with orthopedic - Radiology Data Radiology results: report reviewed (Ultrasound left lower extremity. Negative DVT x-ray negative for acute fracture), image reviewed Disposition Clinical Impression: Sprain of left hip Disposition: HOME SELF-CARE Condition: Good Instructions (If sedation given, give patient instructions): Hip Sprain (ED) Is patient prescribed a controlled substance at d/c from ED?: No Referrals: Mikhail Ayala MD [STAFF PHYSICIAN] - 1-2 days
[2020-05-18 13:51] VITALS: BP 151/77; PULSE 71
--- NOTE | 2020-05-18 13:52 | XR ---
EXAMINATION TYPE: XR femur LT DATE OF EXAM: 05/18/2020 CLINICAL HISTORY: Pain. TECHNIQUE: Two views of the left femur are obtained. COMPARISON: None FINDINGS: There is no acute fracture or dislocation seen in the left femur. Mild axial joint space l oss left hip level. Mild to moderate tricompartment joint space loss left knee without significant sp urring. [id number] medial diffuse subcutaneous edema. IMPRESSION: As above.
[2020-05-18] MEDS ORDERED: traMADol 50 MG TAB PO STA (14:23)
[2020-05-18] MEDS ORDERED: IBUPROFEN 600 MG STARTER PACK 4 TAB BTL PO STA (14:23)
[2020-05-18] MEDS ORDERED: CYCLOBENZAPRINE 10MG STARTER 3 TAB BTL PO STA (14:23)
[2020-05-18] MEDS ORDERED: traMADol 50 MG STARTER PACK 3 TAB BTL PO STA (14:23)
--- NOTE | 2020-05-18 14:26 | US ---
EXAMINATION TYPE: US venous doppler duplex LE LT DATE OF EXAM: 05/18/2020 2:17 PM COMPARISON: NONE CLINICAL HISTORY: pain. left groin and thigh pain after golf 1.5weeks ago and now severe after golfin g this morning SIDE PERFORMED: Left TECHNIQUE: The lower extremity deep venous system is examined utilizing real time linear array sonog neelam with graded compression, doppler sonography and color-flow sonography. VESSELS IMAGED: Common Femoral Vein Deep Femoral Vein Greater Saphenous Vein * Femoral Vein Popliteal Vein Small Saphenous Vein * Proximal Calf Veins (* superficial vessels) Left Leg: Negative for DVT. Enlarged and heterogeneous appearance to anterior left thigh muscle with internal fluid area noted = 1.2 x 1.2 x 0.7cm, and as compared to normal appearing right thigh musc le. IMPRESSION: No evidence of deep vein thrombosis in the right leg. Complex rounded mass in the thigh c ould be a hematoma.
== END 2020-05-18 14:57 | disposition home or self-care (01) ==
LOC: EC 12:17
DX: S73.102A Unspecified sprain of left hip, initial encounter (principal); Z79.899 Other long term (current) drug therapy; Z88.2 Allergy status to sulfonamides; Z88.5 Allergy status to narcotic agent; Z88.6 Allergy status to analgesic agent; Z96.60 Presence of unspecified orthopedic joint implant; X58.XXXA Exposure to other specified factors, initial encounter
CPT/HCPCS: 73552; 93971; 99284; 96372; J1885

== ENCOUNTER → 2020-07-15 | Outpatient (CLI) | payer MEDICARE ==
--- NOTE | 2020-07-17 11:18 | MM ---
Reason for exam: screening (asymptomatic). Last mammogram was performed 1 year and 7 months ago. History: Patient is postmenopausal. Took hormonal contraceptives for 18 years beginning at age 20. Physical Findings: A clinical breast exam by your physician is recommended on an annual basis and results should be correlated with mammographic findings. MG 3D Screening Mammo W/Cad Bilateral CC and MLO view(s) were taken. Prior study comparison: December 19, 2018, bilateral MG 3d screening mammo w/cad. November 03, 2017, bilateral MG 3d screening mammo w/cad. The breast tissue is heterogeneously dense. This may lower the sensitivity of mammography. No significant changes when compared with prior studies. ASSESSMENT: Benign, BI-RAD 2 RECOMMENDATION: Routine screening mammogram of both breasts in 1 year.
== END | disposition home or self-care (01) ==
LOC: RADMAMWWP 09:48
PROVIDERS: ATTEND Obstetrics & Gynecology
DX: Z12.31 Encounter for screening mammogram for malignant neoplasm of breast (principal)
CPT/HCPCS: 77063; 77067

== ENCOUNTER → 2020-07-15 | Outpatient (CLI) | payer MEDICARE ==
--- NOTE | 2020-07-15 19:12 | BD ---
EXAMINATION TYPE: Axial Bone Density DATE OF EXAM: 07/15/2020 COMPARISON: 11/03/2017 CLINICAL HISTORY: Post menopausal screening Height: 59.5 IN Weight: 114 LBS RISK FACTORS HISTORY OF: Active: YES Postmenopausal woman: AGE 56 MEDICATIONS: Additional Medications: CALCIUM, VIT D, VERAPAMIL, LUNESTA EXAM MEASUREMENTS: Bone mineral densitometry was performed using the [employer] System. Bone mineral density as measured about the Lumbar spine is: ----- L1-L4(G/cm2): 1.110 T Score Values are as follows: ----- L2: -0.8 ----- L3: -0.7 ----- L4: -0.6 ----- L1-L4: -0.6 Bone mineral density has: Decreased -3.4% since study of: 11/03/2017 Bone mineral density about the R hip (g/cm2): 0.870 Bone mineral density about the L hip (g/cm2): 0.864 T Score values are as follows: -----R Neck: -1.2 -----L Neck: -1.2 -----R Total: -0.7 -----L Total: -0.9 Bone mineral density has: Increased 1.5% since study of: 11/03/2017 IMPRESSION: Osteopenia (T Score between -2.5 and -1). There is slightly increased risk of fracture and the patient may be considered for treatment. Re-Screen 2-5 years. NOTE: T-SCORE=SD OF THE YOUNG ADULT MEAN.
== END | disposition home or self-care (01) ==
LOC: RADBDWWP 10:26
PROVIDERS: ATTEND Obstetrics & Gynecology
DX: M85.80 Other specified disorders of bone density and structure, unspecified site (principal)
CPT/HCPCS: 77080

== ENCOUNTER → 2020-08-22 | Outpatient (CLI) | payer MEDICARE ==
[2020-08-22 19:54] LABS: Chol/HDL Ratio 2.6; LDL Cholesterol,Calculated 157.4 mg/dL (0.0-131.0); VLDL Calculation 18.6 mg/dL (5.00-40.00)
== END | disposition home or self-care (01) ==
LOC: LABWHC1 10:22
PROVIDERS: ATTEND Internal Medicine Interventional Cardiology
DX: E78.2 Mixed hyperlipidemia (principal)
CPT/HCPCS: 36415; 80061

== ENCOUNTER → 2020-09-13 | Outpatient (CLI) | payer MEDICARE ==
--- NOTE | 2020-09-15 14:29 | CT ---
EXAMINATION TYPE: CT heart w calcium score DATE OF EXAM: 09/13/2020 COMPARISON: None HISTORY: Screening for cardiovascular disorder. 213.9 CT DLP: 44.80 mGycm Automated exposure control for dose reduction was used. CT CALCIUM SCORING Coronary calcium is a marker for plaque (fatty deposits) in a blood vessel or atherosclerosis (harden ing of the arteries). The presence and amount of calcium detected in a coronary artery by the CT sca n, indicates the presence and amount of atherosclerotic plaque. These calcium deposits appear years before the development of heart disease symptoms such as chest pain and shortness of breath. A calcium score is computed for each of the coronary arteries based upon the volume and density of th e calcium deposits. This can be referred to as your calcified plaque burden. It does not correspond directly to the percentage of narrowing in the artery but does correlate with the severity of the un derlying coronary atherosclerosis. PROCEDURE TECHNIQUE - Prospective Gating was used. Slice thickness: 3mm. Density threshold (HU): 130, Pixel threshold: 3, Algorithm: discrete. RESULTS Region: LM Calcium Score (Agatston): 0 Volume (mm3): 0 Mass (g): 0 Region: RCA Calcium Score (Agatston): 0 Volume (mm3): 0 Mass (g): 0 Region: LAD Calcium Score (Agatston): 27.97 Volume (mm3): 25.4 Mass (g): 8.47 Region: CX Calcium Score (Agatston): 0 Volume (mm3): 0 Mass (g): 0 Region: PDA Calcium Score (Agatston): 0 Volume (mm3): 0 Mass (g): 0 Total: Calcium Score (Agatston): 0 Volume (mm3): 0 Mass (g): 0 TOTAL CALCIUM SCORE: 27.97 IMPRESSION: Calcium Score: 27.97 Implication: Minimal to mild atheromatous plaquing with some narrowing possible. Risk of Coronary Artery Disease: Mild but possible. CALCIUM SCORE IMPLICATION RISK OF C ORONARY ARTERY DISEASE 0 No identifiable plaque Very low, generally less than 5% 1-10 Minimal identifiable plaque Very unlikely, less than 10% 11-100 Definite, at least mild atherosclerotic plaque Mild or m inimal coronary narrowings likely 101-400 Definite, at least moderate atherosclerotic plaque Mild coronary ar terrell disease highly likely, significant narrowing possible 401 or Higher Extensive atherosclerotic plaque High lik elihood of at least one significant coronary narrowing
== END | disposition home or self-care (01) ==
LOC: RADCTMAIN 09:04
PROVIDERS: ATTEND Internal Medicine Interventional Cardiology
DX: Z13.6 Encounter for screening for cardiovascular disorders (principal); I25.10 Atherosclerotic heart disease of native coronary artery without angina pectoris
CPT/HCPCS: 75571

== ENCOUNTER → 2021-02-28 | Outpatient (CLI) | payer MEDICARE ==
[2021-02-28 21:13] LABS: Chol/HDL Ratio 2.48; LDL Cholesterol,Calculated 137.8 mg/dL (0.0-131.0); VLDL Calculation 25.2 mg/dL (5.00-40.00)
== END | disposition home or self-care (01) ==
LOC: LABWHC1 09:49
PROVIDERS: ATTEND Internal Medicine Interventional Cardiology
DX: E78.2 Mixed hyperlipidemia (principal)
CPT/HCPCS: 36415; 80061

== ENCOUNTER → 2021-05-08 | Outpatient (CLI) | payer MEDICARE ==
[2021-05-08 23:18] LABS: Chol/HDL Ratio 1.76; LDL Cholesterol,Calculated 75.8 mg/dL (0.0-131.0); VLDL Calculation 15.2 mg/dL (5.00-40.00)
== END | disposition home or self-care (01) ==
LOC: LABWHC1 10:59
PROVIDERS: ATTEND Internal Medicine Interventional Cardiology
DX: E78.2 Mixed hyperlipidemia (principal)
CPT/HCPCS: 36415; 80061; 84450; 84460

== ENCOUNTER → 2021-07-21 | Outpatient (CLI) | payer MEDICARE ==
--- NOTE | 2021-07-22 11:10 | MM ---
Reason for exam: screening (asymptomatic). Last mammogram was performed 1 year ago. History: Patient is postmenopausal. Took hormonal contraceptives for 18 years beginning at age 20. Physical Findings: A clinical breast exam by your physician is recommended on an annual basis and results should be correlated with mammographic findings. MG 3D Screening Mammo W/Cad Bilateral CC and MLO view(s) were taken. Prior study comparison: July 15, 2020, bilateral MG 3d screening mammo w/cad. December 19, 2018, bilateral MG 3d screening mammo w/cad. November 03, 2017, bilateral MG 3d screening mammo w/cad. September 24, 2016, bilateral MG 3d screening mammo w/cad. The breast tissue is heterogeneously dense. This may lower the sensitivity of mammography. No significant changes when compared with prior studies. ASSESSMENT: Benign, BI-RAD 2 RECOMMENDATION: Routine screening mammogram of both breasts in 1 year.
== END | disposition home or self-care (01) ==
LOC: RADMAMWWP 11:12
PROVIDERS: ATTEND Obstetrics & Gynecology
DX: Z12.31 Encounter for screening mammogram for malignant neoplasm of breast (principal)
CPT/HCPCS: 77063; 77067

== ENCOUNTER → 2021-09-10 | Outpatient (CLI) | payer MEDICARE ==
--- NOTE | 2021-09-11 06:43 | US ---
EXAMINATION TYPE: US thyroid st tissue head/neck DATE OF EXAM: 09/10/2021 COMPARISON: 08/08/2018 US thyroid CLINICAL HISTORY: E04.2 MULTINODULAR GOITER. GLAND SIZE: Right Lobe: 5.3 x 2.4 x 2.4 cm Overall Parenchyma: heterogenous Left Lobe: 5.4 x 2.1 x 2.2 cm Overall Parenchyma: heterogeneous Isthmus Thickness: 0.33 cm NODULES RIGHT: # of nodules measured on right: 3 1. 1.5 X 1.1 x 1.4 cm, lower, solid or almost completely solid, hypoechoic nodule, which is wider t stanton tall, with Well-defined margins, without echogenic foci. Prior size: 1.6 x 1.0 x 1.2 cm 2. 1.0 X 0.6 x 0.9 cm, upper mid, mixed cystic and solid, hypoechoic nodule, which is wider than ta ll, with well-defined margins, without echogenic foci. Prior size: 05. x 0.4 x 0.5 cm 3. 1.0 X 0.6 x 0.7 cm, upper mid, cystic or almost completely cystic, anechoic nodule, which is wid er than tall, with well-defined margins, without echogenic foci. Prior size: 0.8 x 0.4 x 0.5 cm LEFT: # of nodules measured on left: 3 1. 0.8 0.7x 1.0cm upper , solid or almost completely solid, hypoechoic nodule, which is wider than t all, well defined margins, without echogenic foci. Prior size: 0.7 x 0.6 x 0.9 cm 2. 1.4 x 0.6 x 1.2 cm, mid pole, mixed, hypoechoic nodule with well-defined margins, without echogeni c foci. Prior size: 0.6 x 0.4 x 0.6 cm 3. 2.3 x 1.4 x 1.6 cm, lower pole, mixed, hypoechoic nodule with irregular borders, with echogenic f oci. Prior size: 1.5 x 0.9 x 1.5 cm ISTHMUS: 0 Nodules Bilateral Neck scanned, no evidence of lymphadenopathy IMPRESSI Stable nonspecific nodularity.
== END ==
LOC: RADUSWWP 15:31
PROVIDERS: ATTEND Family Medicine
DX: E04.2 Nontoxic multinodular goiter (principal)
CPT/HCPCS: 76536

== ENCOUNTER → 2021-10-21 | Outpatient (CLI) | payer MEDICARE ==
[2021-10-21 18:38] LABS: HCT 44.3 % (37.2-46.3); HGB 14.1 g/dL (12.0-15.0); MCH 28.3 pg (27.0-32.0); MCHC 31.8 g/dL (32.0-37.0); MCV 88.8 fL (80.0-97.0); Mean Platelet Volume 10.4 fL (9.5-12.2); Platelet Count 277 X 10*3/uL (140-440); RBC 4.99 X 10*6/uL (4.10-5.20); RDW 11.9 % (11.5-14.5); WBC 7.71 X 10*3/uL (4.50-10.00)
[2021-10-22 03:22] LABS: Chol/HDL Ratio 1.61 Ratio; LDL Cholesterol,Calculated 66.4 mg/dL (0.0-131.0); VLDL Calculation 16.58 mg/dL (5.00-40.00)
[2021-10-22 03:40] LABS: ALT 29 U/L (8-44); AST 20 U/L (13-35); African American GFR (CKD) 99.1 (60.0-200.0); Albumin 4.7 g/dL (3.8-4.9); Albumin/Globulin Ratio 2.45 (1.60-3.17); Alkaline Phosphatase 78 U/L (41-126); BUN/Creat Ratio 20.99 Ratio (12.00-20.00); Blood Urea Nitrogen 15.2 mg/dL (9.0-27.0); Calcium 9.7 mg/dL (8.7-10.3); Carbon Dioxide 21.9 mmol/L (20.0-27.5); Chloride 102 mmol/L (96-109); Globulin 1.9 g/dL (1.6-3.3); Glucose 100 mg/dL (70-110); Non-African American GFR(CKD) 85.5 (60.0-200.0); Potassium 4.3 mmol/L (3.5-5.5); Sodium 139 mmol/L (135-145); Total Protein 6.6 g/dL (6.2-8.2)
== END | disposition home or self-care (01) ==
LOC: LABWHC1 10:06
PROVIDERS: ATTEND Family Medicine
DX: Z00.01 Encounter for general adult medical examination with abnormal findings (principal); E04.2 Nontoxic multinodular goiter
CPT/HCPCS: 36415; 80053; 80061; 82306; 84439; 84443; 85027

== ENCOUNTER 2021-10-30 12:54 | Day surgery (SDC) | payer MEDICARE ==
[2021-10-30] MEDS ORDERED: ALPRAZolam 0.25 MG TAB PO PRN (13:11)
[2021-10-30 13:50] VITALS: TEMP 98.7
[2021-10-30 15:03] VITALS: BP 128/78; PULSE 69; RESP 18
--- NOTE | 2021-10-30 15:35 | US ---
EXAMINATION TYPE: US FNA first lesion DATE OF EXAM: 10/30/2021 COMPARISON: NONE HISTORY: Thyroid nodule. Maximal barrier technique was utilized. After informed consent, skin overlying the lower pole left t hyroid nodule was localized with ultrasound and the overlying skin prepped and draped. Ultrasound was utilized using sterile technique. Lidocaine was used for local anesthesia. Five passes with a 25-ga uge needle were made into the nodule and aspirated specimen was submitted to cytology. Following the procedure hemostasis achieved. No immediate complication. The patient discharged in stable conditi on. The additional nodule described in prior report is in immediate proximity to the dominant lesion in t he lower pole the left lobe and appears confluent. Additional sampling was not performed. IMPRESSION: STATUS POST ULTRASOUND GUIDED FINE NEEDLE ASPIRATION OF THYROID NODULE, PATHOLOGY IS PEND ING. THIS PROCEDURE WAS PERFORMED BY THE UNDERSIGNED.
== END 2021-10-30 14:42 | disposition home or self-care (01) ==
LOC: RADPROMAIN 12:54
PROVIDERS: ATTEND Internal Medicine
DX: E04.2 Nontoxic multinodular goiter (principal)
CPT/HCPCS: 10005; 88173; 88305

== ENCOUNTER → 2022-03-05 | Outpatient (CLI) | payer MEDICARE ==
[2022-03-05 22:31] LABS: HCT 42.2 % (37.2-46.3); HGB 13.5 g/dL (12.0-15.0); MCH 28.6 pg (27.0-32.0); MCV 89.4 fL (80.0-97.0); Mean Platelet Volume 10.5 fL (9.5-12.2); NRBC Per 100 WBC 0 /100 WBCS (0.0-0.0); Platelet Count 274 X 10*3/uL (140-440); RBC 4.72 X 10*6/uL (4.10-5.20); RDW 12.2 % (11.5-14.5); WBC 6.81 X 10*3/uL (4.50-10.00)
[2022-03-05 22:47] LABS: ALT 26 U/L (8-44); AST 20 U/L (13-35); African American GFR (CKD) 104.4 (60.0-200.0); Albumin 4.9 g/dL (3.8-4.9); Alkaline Phosphatase 81 U/L (41-126); BUN/Creat Ratio 29.46 Ratio (12.00-20.00); Blood Urea Nitrogen 19.5 mg/dL (9.0-27.0); Calcium 9.7 mg/dL (8.7-10.3); Carbon Dioxide 23.2 mmol/L (20.0-27.5); Chloride 101 mmol/L (96-109); Chol/HDL Ratio 1.69 Ratio; Glucose 87 mg/dL (70-110); LDL Cholesterol,Calculated 71.9 mg/dL (0.0-131.0); Potassium 4.4 mmol/L (3.5-5.5); Sodium 137 mmol/L (135-145); Total Protein 6.9 g/dL (6.2-8.2); VLDL Calculation 12.06 mg/dL (5.00-40.00)
== END | disposition home or self-care (01) ==
LOC: LABWHC1 13:31
PROVIDERS: ATTEND Internal Medicine Interventional Cardiology
DX: E78.2 Mixed hyperlipidemia (principal); E78.5 Hyperlipidemia, unspecified; M85.80 Other specified disorders of bone density and structure, unspecified site
CPT/HCPCS: 36415; 80053; 80061; 82306; 85027

== ENCOUNTER → 2022-08-04 | Outpatient (CLI) | payer MEDICARE ==
--- NOTE | 2022-08-04 15:17 | MM ---
Reason for Exam: Screening (asymptomatic). Last mammogram was performed 1 year(s) and 1 month(s) ago. Patient History: Menarche at age 18. First Full-Term at age 30. Left ovary removed at age 28. Postmenopausal. Hormonal Contraceptives for 18 years from age 20 until age 50. Risk Values: Leola 5 year model risk: 1.7%. NCI Lifetime model risk: 5.4%. Prior Study Comparison: 12/19/2018 Bilateral Screening Mammogram, [facility]. 07/15/2020 Bilateral Screening Mammogram, [facility]. 07/21/2021 Bilateral Screening Mammogram, [facility]. Tissue Density: The breast tissue is heterogeneously dense. This may lower the sensitivity of mammography. Findings: Analyzed By CAD. Stable 6 mm round mass in the right breast middle to posterior depth slightly upper outer aspect. Benign-appearing right axillary lymph nodes are redemonstrated. There is no suspicious new group of microcalcifications or new suspicious mass in either breast. Overall Assessment: Benign, BI-RAD 2 Management: Screening Mammogram of both breasts in 1 year. A clinical breast exam by your physician is recommended on an annual basis and results should be correlated with mammographic findings. Electronically signed and approved by: Donny Choi M.D.
== END | disposition home or self-care (01) ==
LOC: RADMAMWWP 11:12
PROVIDERS: ATTEND Obstetrics & Gynecology
DX: Z12.31 Encounter for screening mammogram for malignant neoplasm of breast (principal); Z78.0 Asymptomatic menopausal state
CPT/HCPCS: 77063; 77067

== ENCOUNTER → 2022-09-10 | Outpatient (CLI) | payer MEDICARE ==
[2022-09-10 15:34] LABS: ALT 23 U/L (8-44); AST 21 U/L (13-35); Chol/HDL Ratio 1.51 Ratio; VLDL Calculation 13.96 mg/dL (5.00-40.00)
== END | disposition home or self-care (01) ==
LOC: LABWHC1 09:28
PROVIDERS: ATTEND Internal Medicine Interventional Cardiology
DX: Z00.01 Encounter for general adult medical examination with abnormal findings (principal); E78.2 Mixed hyperlipidemia; M85.80 Other specified disorders of bone density and structure, unspecified site
CPT/HCPCS: 36415; 80061; 84450; 84460

== ENCOUNTER → 2023-03-02 | Outpatient (CLI) | payer MEDICARE ==
[2023-03-02 15:14] LABS: HCT 41.5 % (37.2-46.3); MCHC 33.7 g/dL (32.0-37.0); MCV 85.9 fL (80.0-97.0); NRBC Per 100 WBC 0 /100 WBCS (0.0-0.0); Platelet Count 298 X 10*3/uL (140-440); RBC 4.83 X 10*6/uL (4.10-5.20); RDW 11.9 % (11.5-14.5); WBC 6.29 X 10*3/uL (4.50-10.00)
[2023-03-02 16:03] LABS: ALT 19 U/L (8-44); AST 20 U/L (13-35); African American GFR (CKD) 89.8 (60.0-200.0); Blood Urea Nitrogen 14.9 mg/dL (9.0-27.0); Calcium 9.7 mg/dL (8.7-10.3); Carbon Dioxide 24.7 mmol/L (20.0-27.5); Chloride 97 mmol/L (96-109); Chol/HDL Ratio 1.49 Ratio; Glucose 99 mg/dL (70-110); LDL Cholesterol,Calculated 55.1 mg/dL (0.0-131.0); Non-African American GFR(CKD) 77.5 (60.0-200.0); Potassium 4.8 mmol/L (3.5-5.5); Sodium 134 mmol/L (135-145); VLDL Calculation 16.88 mg/dL (5.00-40.00)
== END | disposition home or self-care (01) ==
LOC: LABWHC1 11:05
PROVIDERS: ATTEND Family Medicine
DX: I10 Essential (primary) hypertension (principal); E78.5 Hyperlipidemia, unspecified
CPT/HCPCS: 36415; 80048; 80061; 84450; 84460; 85027

== ENCOUNTER → 2023-08-05 | Outpatient (CLI) | payer MEDICARE ==
--- NOTE | 2023-08-05 11:09 | BD ---
EXAMINATION TYPE: Axial Bone Density DATE OF EXAM: 08/05/2023 CLINICAL HISTORY: 72 years old Female. ICD-10 CODE: M85.88 OT DISRD OF BONE DENSITY Height: 59.75 Weight: 118.6 FRAX RISK QUESTIONS: Alcohol (3 or more units per day): no Family History (Parent hip fracture): no Glucocorticoids (More than 3mos): no History of Fracture in Adulthood: no Secondary Osteoporosis: 1. Type 1 Diabetes: no 2. Hyperthyroidism: no 3. Menopause before 45: no 4. Malnutrition: no 5. Chronic liver disease: no Rheumatoid Arthritis: no Current Tobacco Use: no RISK FACTORS HISTORY OF: Hip Fracture (Right/Left): no Spine Fracture: no History of Wrist Fracture: no Surgery to Spine/Hip(right/left)/Wrist (right/left): no Family History of Osteoporosis: Maternal Aunt, Sister Active: yes Diet low in dairy products/other sources of calcium: somewhat Postmenopausal woman: yes Take estrogen and/or progesterone medications: no Lost more than 2 inches in height since high school: no Frequent falls: no Poor Health: no Hyperparathyroidism: no Adrenal Insufficiency: no MEDICATIONS: Prednisone or other steroids: no Thyroid Medications: no Osteoporosis Medications:no Additional Medications: BP Meds, Cholesterol Meds, Calcium, Vit D Additional History: EXAM MEASUREMENTS: Bone mineral densitometry was performed using the [employer] System. Bone mineral density as measured about the Lumbar spine is: ----- L1-L4(G/cm2): 1.076 T Score Values are as follows: ----- L1: -1.1 ----- L2: -1.2 ----- L3: -0.7 ----- L4: -0.7 ----- L1-L4: -0.9 Z Score Values are as follows: ----- L1: 0.9 ----- L2: 0.9 ----- L3: 1.4 ----- L4: 1.3 ----- L1-L4: 1.2 Bone mineral density has: decreased -3.1 % since study of: 07/15/2020 Bone mineral density about the R hip (g/cm2): 0.913 Bone mineral density about the L hip (g/cm2): 0.876 T Score values are as follows: -----R Neck: -1.2 -----L Neck: -1.4 -----R Total: -0.8 -----L Total: -1.0 Z Score values are as follows: -----R Neck: 0.8 -----L Neck: 0.6 -----R Total: 1.0 -----L Total: 0.7 Bone mineral density has: decreased -1.4 % since study of: 07/15/2020 FRAX%s: The graph provided illustrates a 9.6 % chance for a major osteoporotic fx and a 1.4% chance f or the hips probability for fx in 10 years time. IMPRESSION: Osteopenia (T Score between -2.5 and -1). There is slightly increased risk of fracture and the patient may be considered for treatment. Re-Screen 2-5 years. NOTE: T-SCORE=SD OF THE YOUNG ADULT MEAN.
--- NOTE | 2023-08-06 20:44 | MM ---
Reason for Exam: Screening (asymptomatic). Last screening mammogram was performed 12 month(s) ago. Patient History: Menarche at age 18. First Full-Term at age 30. Left ovary removed at age 28. Postmenopausal. Hormonal Contraceptives for 18 years from age 20 until age 50. Risk Values: Leola 5 year model risk: 1.7%. NCI Lifetime model risk: 5.1%. Prior Study Comparison: 07/15/2020 Bilateral Screening Mammogram, [facility]. 07/21/2021 Bilateral Screening Mammogram, [facility]. 08/04/2022 Bilateral MG 3D screening mammo w/cad, [facility]. Tissue Density: The breast tissue is heterogeneously dense. This may lower the sensitivity of mammography. Findings: Analyzed By CAD. There is no suspicious group of microcalcifications or new suspicious mass in either breast. Overall Assessment: Negative, BI-RAD 1 Management: Screening Mammogram of both breasts in 1 year. . Patient should continue monthly self-breast exams. A clinical breast exam by your physician is recommended on an annual basis. This exam should not preclude additional follow-up of suspicious palpable abnormalities. Note on Leola scores and lifetime risk: 1. A Leola score greater than 3% is considered moderate risk. If this is the case, consider specialist referral to assess eligibility for a risk reducing agent. 2. If overall lifetime risk for the development of breast cancer is 20% or higher, the patient may qualify for future screening with alternating mammogram and breast MRI. Electronically signed and approved by: Michelle Jesus M.D. Radiologist
== END | disposition home or self-care (01) ==
LOC: RADMAMWWP 10:07
PROVIDERS: ATTEND Obstetrics & Gynecology
DX: Z12.31 Encounter for screening mammogram for malignant neoplasm of breast (principal); M85.89 Other specified disorders of bone density and structure, multiple sites; Z78.0 Asymptomatic menopausal state
CPT/HCPCS: 77063; 77067; 77080

== ENCOUNTER → 2023-08-28 | Outpatient (CLI) | payer MEDICARE ==
[2023-08-28 22:49] LABS: Basophils # (A) 0.08 X 10*3/uL (0.00-0.10); Basophils % (A) 1.1 %; Eosinophils # (A) 0.17 X 10*3/uL (0.04-0.35); Eosinophils % (A) 2.4 %; HCT 44.1 % (37.2-46.3); HGB 14.6 g/dL (12.0-15.0); Lymphocytes # (A) 2.09 X 10*3/uL (0.90-5.00); MCH 28.1 pg (27.0-32.0); MCHC 33.1 g/dL (32.0-37.0); Mean Platelet Volume 10.2 FL (9.5-12.2); Monocytes # (A) 0.62 X 10*3/uL (0.20-1.00); Monocytes % (A) 8.9 %; NRBC Per 100 WBC 0 X 10*3/uL (0.00-0.01); Neutrophils # (A) 3.98 X 10*3/uL (1.80-7.70); Neutrophils % (A) 57.3 %; Platelet Count 290 X 10*3/uL (140-440); RBC 5.19 X 10*6/uL (4.10-5.20); RDW 11.9 % (11.5-14.5); WBC 6.96 X 10*3/uL (4.50-10.00)
[2023-08-28 23:14] LABS: Appearance,Urine Turbid (Clear); Bilirubin,Urine Negative (Negative); Blood,Urine Trace (Negative); Color,Urine Yellow (Yellow); Ketones,Urine Negative (Negative); Nitrite,Urine Negative (Negative); PH, Urine 8.5; Specific Gravity,Urine 1.013 (1.001-1.030); Urobilinogen,Urine 0.2 E.U./DL
[2023-08-28 23:33] LABS: ALT 22 U/L (8-44); AST 19 U/L (13-35); Albumin 4.6 g/dL (3.8-4.9); Alkaline Phosphatase 79 U/L (41-126); Blood Urea Nitrogen 16.1 mg/dL (9.0-27.0); Calcium 10.1 mg/dL (8.7-10.3); Carbon Dioxide 25.2 mmol/L (21.6-31.8); Chloride 99 mmol/L (96-109); Chol/HDL Ratio 1.37 Ratio; Glucose 101 mg/dL (70-110); LDL Cholesterol,Calculated 38.2 mg/dL (0.0-131.0); Potassium 4.6 mmol/L (3.5-5.5); Sodium 136 mmol/L (135-145); T4, Free (Free Thyroxine) 1.31 ng/dL (0.80-1.80); Total Bilirubin 0.7 mg/dL (0.3-1.2); Total Protein 6.6 g/dL (6.2-8.2)
[2023-08-28 23:35] LABS: Bacteria,Urine 3+ (None Seen)
== END | disposition home or self-care (01) ==
LOC: LABWHC1 10:48
PROVIDERS: ATTEND Internal Medicine Interventional Cardiology
DX: E78.2 Mixed hyperlipidemia (principal); E04.2 Nontoxic multinodular goiter; M85.80 Other specified disorders of bone density and structure, unspecified site
CPT/HCPCS: 36415; 80053; 80061; 81001; 82306; 84439; 84443; 85025

== ENCOUNTER → 2024-03-20 | Outpatient (CLI) | payer MEDICARE ==
--- NOTE | 2024-03-20 15:21 | US ---
EXAMINATION TYPE: US thyroid st tissue head/neck DATE OF EXAM: 03/20/2024 COMPARISON: 10/30/2021, 09/10/2021 CLINICAL INDICATION: Female, 73 years old with history of E04.2 NONTOXIC MULTINODULAR GOITER; Follow up nodules. Pt is not on thyroid meds. GLAND SIZE: Right Lobe: 5.5 x 2.3 x 2.7 cm Overall Parenchyma: heterogeneous Left Lobe: 4.8 x 2.4 cm Overall Parenchyma: heterogeneous Isthmus Thickness: 0.4 cm NODULES- bilateral multinodular thyroid lobes, difficult to follow previous nodules RIGHT: # of nodules measured on right: 3 1. 1.4 X 1.2 x 1.4 cm, lower mid, Prior size: 1.5 x 1.1 x 1.4 cm TIRADS Score: 4 TIRADS Category 4: Composition: Solid or almost completely solid (2 points). Echogenicity: Hypoechoic (2 points). Shape: Wider than tall (0 points). Margin: Smooth (0 points). Echogenic foci: None or large comet-tail artifacts (0 points) Recommendation: If >1.5cm: FNA; If >1cm: Follow up at 1,2, 3,5 years 2. 0.8 X 0.9 x 0.5 cm, mid medial, Prior size: 1.0 x 0.6 x 0.9 cm TIRADS Score: 3 TIRADS Category 3: Composition: Mixed cystic and solid (1 point). Echogenicity: Hypoechoic (2 points). Shape: Wider than tall (0 points). Margin: Smooth (0 points). Echogenic foci: None or large comet-tail artifacts (0 points) Recommendation: If >2.5cm: FNA; If >1.5cm: Follow up at 1,3,5 years almost completely 3. 0.8 X 0.9 x 0.5 cm, upper mid, Prior size: 1.0 x 0.6 x 0.7 cm TIRADS Score: 3 TIRADS Category 3: Composition: Mixed cystic and solid (1 point). Echogenicity: Hypoechoic (2 points). Shape: Wider than tall (0 points). Margin: Smooth (0 points). Echogenic foci: None or large comet-tail artifacts (0 points) Recommendation: If >2.5cm: FNA; If >1.5cm: Follow up at 1,3,5 years LEFT: # of nodules measured on left: 3 1. 0.7 X 0.8 x 0.5 cm, upper medial Prior size: 0.8 x 0.7 x 1.0 cm TIRADS Score: 4 TIRADS Category 4: Composition: Solid or almost completely solid (2 points). Echogenicity: Hypoechoic (2 points). Shape: Wider than tall (0 points). Margin: Smooth (0 points). Echogenic foci: None or large comet-tail artifacts (0 points) Recommendation: If >1.5cm: FNA; If >1cm: Follow up at 1,2, 3,5 years 2. 1.1 X 1.1 x 0.6 cm, mid mid Prior size: 1.4 x 0.6 x 1.2 cm TIRADS Score: 0 TIRADS Category 1: Composition: Spongiform (0 points). Recommendation: No FNA 3. 1.5 X 1.5 x 1.4 cm, lower medial, Prior size: 2.3 x 1.4 x 1.6 cm TIRADS Score: 3 TIRADS Category 3: Mildly Suspicious Composition: Mixed cystic and solid (1 point). Echogenicity: Hypoechoic (2 points). Shape: Wider than tall (0 points). Margin: Smooth (0 points). Echogenic foci: None or large comet-tail artifacts (0 points) Recommendation: If >2.5cm: FNA; If >1.5cm: Follow up at 1,3,5 years ISTHMUS: # of nodules measured in the isthmus: 0 Bilateral neck scanned, no evidence of lymphadenopathy. IMPRESSION: 1. Heterogenous echotexture to the thyroid gland correlate with serum markers for thyroiditis. 2. Thyroid nodules that meet criteria for follow-up.
[2024-03-20 19:21] LABS: Basophils # (A) 0.06 X 10*3/uL (0.00-0.10); Basophils % (A) 0.9 %; Eosinophils # (A) 0.16 X 10*3/uL (0.04-0.35); Eosinophils % (A) 2.4 %; HCT 43.9 % (37.2-46.3); HGB 13.9 g/dL (12.0-15.0); Lymphocytes # (A) 1.91 X 10*3/uL (0.90-5.00); Lymphocytes % (A) 28.6 %; MCH 28.3 pg (27.0-32.0); MCHC 31.7 g/dL (32.0-37.0); MCV 89.2 FL (80.0-97.0); Mean Platelet Volume 10.7 FL (9.5-12.2); Monocytes # (A) 0.56 X 10*3/uL (0.20-1.00); Monocytes % (A) 8.4 %; NRBC Per 100 WBC 0 X 10*3/uL (0.00-0.01); Neutrophils # (A) 3.96 X 10*3/uL (1.80-7.70); Neutrophils % (A) 59.4 %; Platelet Count 286 X 10*3/uL (140-440); RBC 4.92 X 10*6/uL (4.10-5.20); RDW 11.8 % (11.5-14.5); WBC 6.67 X 10*3/uL (4.50-10.00)
[2024-03-20 20:02] LABS: ALT 22 U/L (8-44); AST 21 U/L (13-35); BUN/Creat Ratio 27.22 Ratio (12.00-20.00); Blood Urea Nitrogen 24.5 mg/dL (9.0-27.0); Calcium 10.2 mg/dL (8.7-10.3); Carbon Dioxide 22.5 mmol/L (21.6-31.8); Chloride 101 mmol/L (96-109); Chol/HDL Ratio 1.57 Ratio; Glucose 104 mg/dL (70-110); LDL Cholesterol,Calculated 66.7 mg/dL (0.0-131.0); Potassium 4.2 mmol/L (3.5-5.5); Sodium 138 mmol/L (135-145)
== END | disposition home or self-care (01) ==
LOC: RADUSWWP 12:05
PROVIDERS: ATTEND Family Medicine
DX: E04.2 Nontoxic multinodular goiter (principal); E78.5 Hyperlipidemia, unspecified; E55.9 Vitamin D deficiency, unspecified
CPT/HCPCS: 76536; 80048; 80061; 82306; 83036; 84439; 84443; 84450; 84460; 85025

== ENCOUNTER → 2024-09-15 | Outpatient (CLI) | payer MEDICARE ==
--- NOTE | 2024-09-17 05:25 | MM ---
Reason for Exam: Screening (asymptomatic). Last mammogram was performed 1 year(s) and 1 month(s) ago. Patient History: Menarche at age 18. First Full-Term at age 30. Left ovary removed at age 28. Postmenopausal. Hormonal Contraceptives for 18 years from age 20 until age 50. Risk Values: Leola 5 year model risk: 1.8%. NCI Lifetime model risk: 4.9%. Prior Study Comparison: 07/21/2021 Bilateral Screening Mammogram, [facility]. 08/04/2022 Bilateral MG 3D screening mammo w/cad, [facility]. 08/05/2023 Bilateral MG 3D screening mammo w/cad, [facility]. Tissue Density: The breasts are heterogeneously dense, which may obscure small masses. Findings: Analyzed By CAD. The pattern is symmetrical. Chronic nodularity is within the right breast. No suspicious groups of microcalcifications, spiculated or lobular masses, architectural distortion or other secondary signs of malignancy are mammographically apparent. Overall Assessment: Benign, BI-RAD 2 Management: Screening Mammogram of both breasts in 1 year. A negative mammogram report should not preclude additional follow up of suspicious palpable abnormalities. Patient should continue monthly self breast exam. A clinical breast exam by your physician is recommended on an annual basis and results should be correlated with mammographic findings. Note on Leola scores and lifetime risk: 1. A Leola score greater than 3% is considered moderate risk. If this is the case, consider specialist referral to assess eligibility for a risk reducing agent. 2. If overall lifetime risk for the development of breast cancer is 20% or higher, the patient may qualify for future screening with alternating mammogram and breast MRI. [facility], , 09/17/2024 5:23 AM. Electronically signed and approved by: Alen Machado D.O. Radiologis
== END | disposition home or self-care (01) ==
LOC: RADMAMWWP 08:55
PROVIDERS: ATTEND Family Medicine
DX: Z12.31 Encounter for screening mammogram for malignant neoplasm of breast (principal); Z90.721 Acquired absence of ovaries, unilateral; Z78.0 Asymptomatic menopausal state; R92.333 Mammographic heterogeneous density, bilateral breasts; N63.10 Unspecified lump in the right breast, unspecified quadrant
CPT/HCPCS: 77063; 77067

== ENCOUNTER → 2024-10-17 | Outpatient (CLI) | payer MEDICARE ==
[2024-10-17 13:20] LABS: Amorphous Sediment,Urine Occasional /hpf; Appearance,Urine Cloudy (Clear); Bilirubin,Urine Negative (Negative); Blood,Urine Negative (Negative); Color,Urine Colorless; Glucose,Urine (UA) Negative (Negative); Ketones,Urine Negative (Negative); Leukocyte Esterase,Urine Negative (Negative); Mucus,Urine Rare /hpf; Nitrite,Urine Negative (Negative); PH, Urine 7.5 (5.0-8.0); Protein,Urine Negative (Negative); RBC,Urine 1 /hpf (0-5); Specific Gravity,Urine 1.018 (1.001-1.035); Urobilinogen,Urine <2.0 mg/dL (<2.0); WBC,Urine 1 /hpf (0-5)
[2024-10-17 20:39] LABS: Basophils # (A) 0.06 X 10*3/uL (0.00-0.10); Basophils % (A) 0.7 %; Eosinophils # (A) 0.22 X 10*3/uL (0.04-0.35); Eosinophils % (A) 2.5 %; HCT 45.9 % (37.2-46.3); HGB 14.7 g/dL (12.0-15.0); Lymphocytes # (A) 2.23 X 10*3/uL (0.90-5.00); Lymphocytes % (A) 25.4 %; MCH 28.2 pg (27.0-32.0); MCV 87.9 FL (80.0-97.0); Mean Platelet Volume 10.6 FL (9.5-12.2); Monocytes # (A) 0.66 X 10*3/uL (0.20-1.00); Monocytes % (A) 7.5 %; NRBC Per 100 WBC 0 X 10*3/uL (0.00-0.01); Neutrophils # (A) 5.58 X 10*3/uL (1.80-7.70); Neutrophils % (A) 63.6 %; Platelet Count 309 X 10*3/uL (140-440); RBC 5.22 X 10*6/uL (4.10-5.20); RDW 12.1 % (11.5-14.5); WBC 8.78 X 10*3/uL (4.50-10.00)
[2024-10-17 20:40] LABS: BUN/Creat Ratio 27.57 Ratio (12.00-20.00); Blood Urea Nitrogen 19.3 mg/dL (9.0-27.0); Glucose 96 mg/dL (70-110); LDL Cholesterol,Calculated 65.6 mg/dL (0.0-131.0)
[2024-10-17 20:41] LABS: ALT 20 U/L (8-44); AST 20 U/L (13-35); Albumin 4.9 g/dL (3.8-4.9); Albumin/Globulin Ratio 2.04 Ratio (1.60-3.17); Alkaline Phosphatase 87 U/L (41-126); Calcium 10.3 mg/dL (8.7-10.3); Carbon Dioxide 24.4 mmol/L (21.6-31.8); Chloride 99 mmol/L (96-109); Globulin 2.4 g/dL (1.6-3.3); Potassium 4.1 mmol/L (3.5-5.5); Sodium 137 mmol/L (135-145); Total Bilirubin 0.8 mg/dL (0.3-1.2); Total Protein 7.3 g/dL (6.2-8.2)
== END | disposition home or self-care (01) ==
LOC: LABWHC1 11:28
PROVIDERS: ATTEND Family Medicine
DX: Z00.01 Encounter for general adult medical examination with abnormal findings (principal); E78.5 Hyperlipidemia, unspecified; E04.2 Nontoxic multinodular goiter; M85.80 Other specified disorders of bone density and structure, unspecified site
CPT/HCPCS: 36415; 80053; 80061; 81001; 82306; 83036; 84443; 85025